=== PATIENT | male | born 1940 | race Caucasian/White ===

== ENCOUNTER 2021-10-15 10:14 | Outpatient (REF) | payer MEDICARE, SELFPAY | END 2021-10-15 10:15 | disposition home or self-care (01) | LOC: HO.BBR 10:14 | PROVIDERS: Visit Provider Internal Medicine | DX: Z13.89 Encounter for screening for other disorder (principal) | CPT/HCPCS: 85014; 85018; 99195 ==

== ENCOUNTER 2022-02-05 08:02 | Outpatient (REF) | payer MEDICARE, SELFPAY | END 2022-02-05 08:03 | disposition home or self-care (01) | LOC: HO.BBR 08:02 | PROVIDERS: Visit Provider Internal Medicine | DX: D75.1 Secondary polycythemia (principal) | CPT/HCPCS: 85014; 85018; 99195 ==

== ENCOUNTER 2022-03-10 08:06 | Outpatient (REF) | payer MEDICARE, SELFPAY | END 2022-03-10 08:07 | disposition home or self-care (01) | LOC: HO.BBR 08:06 | PROVIDERS: Visit Provider Internal Medicine | DX: D75.1 Secondary polycythemia (principal) | CPT/HCPCS: 85014; 85018; 99195 ==

== ENCOUNTER 2022-05-12 08:26 | Outpatient (REF) | payer MEDICARE, SELFPAY | END 2022-05-12 08:27 | disposition home or self-care (01) | LOC: HO.BBR 08:26 | PROVIDERS: PCP Pediatrics; Visit Provider Internal Medicine | DX: D75.1 Secondary polycythemia (principal) | CPT/HCPCS: 85018 ==

== ENCOUNTER 2022-05-14 11:58 | Outpatient (REF) | payer MEDICARE, SELFPAY | END 2022-05-14 11:59 | disposition home or self-care (01) | LOC: HO.BBR 11:58 | PROVIDERS: Visit Provider Internal Medicine | DX: D75.1 Secondary polycythemia (principal) | CPT/HCPCS: 85014; 85018; 99195 ==

== ENCOUNTER 2025-01-01 11:03 | Outpatient (REF) | payer MEDICARE, SELFPAY ==
--- OUTSIDE RECORDS SUMMARY | 2025-01-01 11:59 | XMS_ITS | Clinical Summary ---
Author Organization [facility] Address [address] [place] [address] Care Team Providers Care Equity Analyst Name Role Phone Alexander Joshi MD Primary Care Provider Allergies Active Allergy Reactions Criticality Noted Date Comments Iodinated Contrast Media 09/17/2019 Ibuprofen 09/17/2019 Medications Medication Sig Dispensed Refills Start Date End Date Status losartan (COZAAR) tablet 50 mg Take 1 tablet (50 mg total) by mouth daily. 0 Active aspirin 81 MG EC tablet Take 1 tablet (81 mg total) by mouth daily. 0 Active Multiple Vitamin (MULTIVITAMIN PO) Take by mouth. 0 Act aurora vitamin D3 (VITAMIN D3) 10 MCG (400 UNIT) tablet Take 1 tablet (400 Units total) by mouth daily. 0 Active hydroxyurea (HYDREA) 500 MG capsule TAKE 1 CAPSULE(500 MG) BY MOUTH DAILY 120 capsule 3 12/01/2022 Active Active Problems No known active problems Social History Tobacco Use Types Packs/Day Years Used Date Smoking Tobacco: Former Smokeless Tobacco: Never Alcohol Use Standard Drinks/Week Comments Yes 0 (1 standard drink = 0.6 oz pur e alcohol) Sex and Gender Information Value Date Recorded Sex Assigned at Not on file Gender Identity Not on file Sexual Orientation Not on file Job Start Date Occupation Industry Not on file Not on file Not on file Last Filed Vital Signs Vital Sign Reading Time Taken Comments Blood Pressure 167/53 02/03/2023 9:26 AM EDT Pulse 72 02/03/2023 9:26 AM EDT Temperature 37.1 C (98.7 F) 02/03/2023 9:26 AM EDT Respiratory Rate - - Oxygen Saturation 99% 02/03/2023 9:26 AM EDT Inhaled Oxygen Concentration - - Weight 59.9 kg (132 lb) 02/03/2023 9:26 AM EDT Height 167.6 cm (5' 6 ) 02/03/2023 9:26 AM EDT Body Mass Index 21.31 02/03/2023 9:26 AM EDT Plan of Treatment Health Maintenance Due Date Last Done Comments Depression Screening 1952 Preventative Health Evaluation 1957 Shingrix-Zoster Vaccine (1 o f 2) 1989 Fall Risk Assessment 02/07/2004 RSV Adult > 60+ Yrs or (1 - 1-dose 75+ series) 2014 DTap / Tdap / Td (2 - Td or Tdap) 07/27/2023 07/26/2013 COVID-19 Vaccine (2 - 2023-2 5 season) 2024 07/17/2020 Influenza Vaccine (#1) 2025 , 01/27/2021 Pneumococcal Vaccine Completed 01/16/2020, 07/19/2013 Hepatitis B Vaccines Aged Out No long er eligible based on patient's age to complete this topic RSV Ped < 20 months Aged Out No longe r eligible based on patient's age to complete this topic Care Teams Equity Analyst Relationship Specialty Start Date End Date Alexander Joshi MD PCP - General Heavy Equipment Mechanic 09/14/19
--- OUTSIDE RECORDS SUMMARY | 2025-01-01 11:59 | XMS_ITS | Clinical Summary ---
Author Organization [facility] Address [address] [place] [address] Phone Care Team Providers Care Kettle Girl Name Role Phone Tammy Joshi MD Primary Care Provider [phone] Allergies Active Allergy Reactions Criticality Noted Date Comments Ibuprofen 06/10/2005 Tachycardia Iodinated Contrast Media 06/10/2005 Other Reaction(s): Rash/Dermatitis Medications MULTIVITAMIN ORAL QD Active CHOLECALCIFEROL , VITAMIN D3, ORAL Take by mouth daily. Active aspirin 81 mg EC tablet 1 TABLET DAILY 8 Active losartan (COZAAR) 100 mg tabletIndicatio ns:Hypertension , unspecified type Take 1 tablet (100 mg total) by mouth 1 (one) time each day. 90 tablet 5 Active tamsulosin (FLOMAX) 0.4 mg 24 hr capsuleIndicati ons:Benign prostatic hyperplasia with lower urinary tract symptoms, symptom details unspecified Take 1 capsule (0.4 mg total) by mouth 1 (one) time each day. Capsules should be taken 30 minutes following the same meal each day. 30 each 2 5 03/10/20 25 Active tamsulosin (FLOMAX) 0.4 mg 24 hr capsule Take 1 capsule (0.4 mg total) by mouth 1 (one) time each day. Capsules should be taken 30 minutes following the same meal each day. 30 each 2 5 12/11/19 25 Discontinu ed(Reorder ) Active Problems Problem Noted Date Diagnosed Date Acute diverticulitis 06/12/2024 Abdominal pain 04/13/2024 BPH (benign prostatic hyperplasia) 07/12/2023 Overview (04/13/2024): On tamsulosin Hypertension 10/30/[address] scan, lung 06/29/2017 Overview (04/13/2024): Chest x-ray 06/26. CT 07/24 right midlung density. Repeat 3-6 months. Deviation of trachea to right. 05/27 Density resolved. 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 MRI recommended Diverticulosis 11/26/2010 Overview (04/13/2024): Diverticulitis 11/2010 Ear discharge 09/05/2009 Overview (04/13/2024): Left--Dr. Mcmahan Hypercholesteremia 06/05/2008 Overview (04/13/2024): 05/17--rec med, pt declined Chronic obstructive airway d isease ([facility] V24, [facility] V28) 01/14/2007 Overview (04/13/2024): by CT 12/13 Calculus of kidney 05/23/2006 Overview (04/13/2024): Bilateral on cat scan Encounters Date Type Department Care Team Description 12/24/2024 11:30 AM EDT Office Visit [facility] Hematology Oncology [address] [place] [address] Jasmin Green MD Polycythemia 12/10/2024 10:00 AM EDT Office Visit [facility] [place] [place] [address] [place] [phone] Petty Krishnan PA Primary hypertension (Primary Dx); Polycythemia; Benign prostatic hyperplasia with lower urinary tract symptoms, symptom details unspecified; Lower abdominal pain; 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, without long-term current use of insulin ([facility] V24, [facility] V28) 12/10/2024 Telephone Adult [facility] [address] [place] [address] Melinda Stover RN 11/20/2024 10:40 AM EDT Office Visit Gastroenterology [facility] [address] [facility] [address] [facility] [address] [place] [address] Katherine Barnes NP Left lower quadrant abdominal pain (Primary Dx); History of diverticulitis of colon 10/29/2024 11:30 AM EDT Office Visit [address] [phone] Ed Sherman PA Polycythemia (Primary Dx); Primary hypertension; Benign prostatic hyperplasia with lower urinary tract symptoms, symptom details unspecified; 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, without long-term current use of insulin ([facility] V24, [facility] V28); Weight loss; Other fatigue 10/26/2024 Telephone Adult [address] [phone] Tammy Joshi MD from Last 3 Months Immunizations Name Administration Dates Next Due Influenza trivalent, 0.5mL ( Fluad) 65yo and older 01/10/2024,02/10/2023,01/27/2021 Moderna SARS-CoV-2 COVID-19, mRNA, LNP-S, preservative free 06/19/2020 Pneumococcal conjugate 13 va lent (Prevnar 13, PCV13) 2mo and older 01/16/2020 Pneumococcal polysaccharide 23 valent (Pneumovax 23) 2yo and older 07/19/2013 Td Tetanus diptheria (Tdvax) 7yo and older 03/05 Tdap Tetanus diptheria acell ular pertussis (Boostrix; Adacel) 7yo and older 07/26/2013 Zoster Live 08/07/2012 Surgical History Surgery Date Site/Laterality Comments OTHER SURGICAL HISTORY PROCEDURE: HISTORY OTHER; COMMENT: repair fractured rib on the right with thoracotomy HERNIA REPAIR 05/11 PROCEDURE: HISTORICAL HERNIA REPAIR/ING; COMMENT: right - Dr. Perez FOOT SURGERY PROCEDURE: HISTORICAL FOOT SURGERY; COMMENT: x 7, due to injury COLONOSCOPY 12/05/14 PROCEDURE: HISTORICAL COLONOSCOPY; COMMENT: Pancolonic Diverticulosis, no polyps Medical History Medical History Date Comments Chronic airway obstruction, not elsewhere classified 01/14/2007 DX:Chronic airway obstructio n, not elsewhere classified Renal cyst 11/27/2010 DX:Renal cyst; C OMMENT: On cat scan Historical Medical DX 08/17/2013 DX:Polycyt hemia Ear discharge 09/05/2009 DX:Ear discharge ; COMMENT: Left--Dr. Mcmahan [phone] Diverticulosis 11/26/2010 DX:Diverticulosi s; COMMENT: Diverticulitis 11/2010 Carotid bruit 07/19/2013 DX:Carotid bruit Calculus of kidney 05/23/2006 DX:Calculus o f kidney; COMMENT: Bilateral on cat scan Hyperlipidemia 06/05/2008 DX:Hyperlipidemi a; COMMENT: 05/17--rec med, pt declined Abdominal pain DX:Abdominal agus n Hypertension 10/30/2019 Family History Medical History Relation Name Comments No Known Problems Aunt Diabetes Brother 1 Alcohol abuse Brother 2 Diabetes Brother 2 Prostate cancer Brother 3 No Known Problems Daughter 1 No Known Problems Daughter 2 Cataracts Father No Known Problems Maternal Grandfather No Known Problems Maternal Grandmother No Known Problems Mother No Known Problems Other 1 Hypertension Other 2 No Known Problems Other 3 No Known Problems Paternal Grandfather No Known Problems Paternal Grandmother Coronary artery disease Sister Diabetes Sister No Known Problems Son No Known Problems Uncle Blindness Neg Hx Glaucoma Neg Hx Macular degeneration Neg Hx Strabismus Neg Hx Relation Name Status Comments Aunt Brother 1 Brother 2 Brother 3 Daughter 1 Alive Daughter 2 Alive Father Maternal Grandfather Maternal Grandmother Mother Other 1 Other 2 Other 3 Paternal Grandfather Paternal Grandmother Sister Alive Son Alive Uncle Social History Tobacco Use Types Packs/Day Years Used Date Smoking Tobacco: Former Cigarettes Q uit: 05/09/1988 Smokeless Tobacco: Former Quit: 05/09/1979 Tobacco Cessation:Counseling Given: Not Answered Alcohol Use Standard Drinks/Week Comments Yes 0 (1 standard drink = 0.6 oz pur e alcohol) rarely Housing Instability Answer Date Recorde d Are you worried that in the next 2 months you may not have stable housing? No 09/26/2024 Food Access & Nutrition Answer Date Rec orded Do you have access to a vari ety of food including fruits and vegetables? Yes 09/26/2024 Access to Healthcare Answer Date Record ed Within the last 3 months, ho w many times did you visit the emergency department for your medical care? 1 09/26/2024 Health Literacy Answer Date Recorded How often do you need to hav e someone help you when you read instructions, pamphlets, or other written material from your doctor or pharmacy? Never 09/26/2024 Caregiver: How often do you need to have someone help you when you read instructions, pamphlets, or other written material from your doctor or pharmacy? Not on file 09/26/2024 Financial Risk Answer Date Recorded How hard is it for you to pa y for the very basics like food, housing, medical care, and air conditioning / heating? Not very hard 09/26/2024 Transportation Answer Date Recorded Has the lack of transportati on kept you from meetings, work, or from getting things needed for daily living? No Has the lack of transportati on kept you from medical appointments or from getting medications? No 09/26/2024 Social Isolation Answer Date Recorded How often do you feel lonely or isolated from th ose around you? Rarely 09/26/2024 Food Risk Answer Date Recorded Within the past 12 months we worried whether our food would run out before we got money to buy more. Never true 09/26/2024 Within the past 12 months th e food we bought just didn't last and we didn't have money to get more. Never true 09/26/2024 Dependent Care Answer Date Recorded Do you need help finding or paying for care for your loved ones. For example, childhood teacher or elderly care for an older adult? No 09/26/2024 Education Answer Date Recorded Do you think completing more education or training, like finishing a GED, going to college, or learning a trade, would be helpful for you? N/A 09/26/2024 Employment and Income Answer Date Recor ded During the last four weeks, have you been actively looking for work? No 09/26/2024 Living Situation Answer Date Recorded What is your living situation? 0 09/26/2024 Interpersonal Safety Answer Date Record ed Physical Abuse 06/12/2024 Verbal Abuse 06/12/2024 Sex and Gender Information Value Date Recorded Sex Assigned at Male 06/12/2024 1:45 PM EST Legal Sex Male 2:59 AM EST Gender Identity Male 06/12/2024 1:45 PM EST Sexual Orientation Choose not to disclose 2024 1:45 PM EST Obstetrics History Last Filed Vital Signs Vital Sign Reading Time Taken Comments Blood Pressure 172/78 12/24/2024 11:21 AM EDT Pulse 78 12/24/2024 11:21 AM EDT Temperature 36.4 C (97.6 F) 12/24/2024 11:21 AM EDT Respiratory Rate 15 06/13/2024 8:10 AM EST Oxygen Saturation 98% 12/24/2024 11:21 AM EDT Inhaled Oxygen Concentration - - Weight 54 kg (119 lb) 12/24/2024 11:21 AM EDT Height 172.7 cm (5' 8 ) 12/24/2024 11:21 AM EDT Body Mass Index 18.09 12/24/2024 11:21 AM EDT Plan of Treatment Upcoming Encounters Date Type Department Care Team (Late st Contact Info) Description 04/22/2025 11:15 AM EST Office Visit [facility] Hematology Oncology [address] [place] [phone] Jasmin Green MD [address] [place] [address] Health Maintenance Due Date Last Done Comments Diabetes: Annual Retina Eye Exam 1950 RSV Immunization Adult Patients (1 - 1-dose 75+ series) 2014 DTaP,Tdap,and Td Vaccines (3 - Td or Tdap) 07/27/2023 07/26/2013, 03/05/2004 COVID-19 Vaccine ( - season) 2024 03/31/2021, 07/17/2020, 06/19/2020 Zoster Vaccines (3 of 3) 01/02/2025 11/07/2024, 04/0 05/2012 Influenza Vaccine (#1) 2025 , 02/10/2023, 01/27/2022, Additional history exists Diabetes: Annual Foot Exam 01/09/2025 01/10/2024 Diabetes: Blood Sugar Control Test (HGBA1C) 06/12/2025 12/10/2024, 01/10/2024, 01/10/2024 Falls Risk Assessment 06/13/2025 06/13/2024 Medicare Annual Wellness Visit 09/26/2025 09/26/2024 Social Influencers of Health Screening 09/26/2025 09/26/2024 Diabetes: Annual Urine Albumin-Creatinine Ratio (uACR) 12/10/2025 12/10/2024, 01/10/2024 Diabetes: Annual GFR (Glomerular Filtration Rate) 12/10/2025 12/10/2024, 06/13/2024, 06/12/2024, Additional history exists Hypertension/CHF/CAD Annual BMP Blood Test 12/10/2025 12/10/2024, 06/13/2024, 06/12/2024, Additional history exists Cholesterol Screening (Lipid Panel) 12/10/2029 12/10/2024, 01/10/2024, 01/10/2024 Pneumococcal Vaccine: 50+ Years Completed 08/24/2022, 01/16/2020, 02/10/2016, Additional history exists Depression Screening Completed 09/26/2024, 07/12/19 24 HIB Vaccines Aged Out No longer eligi ble based on patient's age to complete this topic HPV Vaccines Aged Out No longer eligi ble based on patient's age to complete this topic Hepatitis A Vaccines Aged Out No long er eligible based on patient's age to complete this topic Hepatitis B Vaccines Aged Out No long er eligible based on patient's age to complete this topic IPV Vaccines Aged Out No longer eligi ble based on patient's age to complete this topic MMR Vaccines Aged Out No longer eligi ble based on patient's age to complete this topic Meningococcal ACWY Vaccine Aged Out N o longer eligible based on patient's age to complete this topic Meningococcal B Vaccine Aged Out No l onger eligible based on patient's age to complete this topic RSV Immunization Patients Under 20 months Aged Out No longer eligible based on patient's age to complete this topic Varicella Vaccines Aged Out No longer eligible based on patient's age to complete this topic Procedures Procedure Name Priority Date/Time Associated Diagnosis Comments CBC WITH AUTO DIFFERENTIAL Routine 12/10/2024 10:34 AM EDT Polycythemia PSA TOTAL, FREE AND COMPLEXED, DIAGNOSTIC Routine 12/10/2024 10:34 AM EDT Benign prostatic hyperplasia with lower urinary tract symptoms, symptom details unspecified Weight loss Other fatigue CBC AND DIFFERENTIAL Routine 12/10/2024 10:34 AM EDT Polycythemia MICROALBUMIN CREATININE URINE RATIO Routine 12/10/2024 10:34 AM EDT 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, without long-term current use of insulin ([facility] V24, [facility] V28) LIPID PANEL WITH REFLEX TO DIRECT LDL Routine 12/10/2024 10:34 AM EDT 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, without long-term current use of insulin ([facility] V24, [facility] V28) HEMOGLOBIN A1C Routine 12/10/2024 10:34 AM EDT 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, without long-term current use of insulin ([facility] V24, [facility] V28) COMPREHENSIVE METABOLIC PANEL Routine 12/10/2024 10:34 AM EDT Abdominal pain, unspecified abdominal location C-REACTIVE PROTEIN Routine 12/10/2024 10 :34 AM EDT Abdominal pain, unspecified abdominal location DIABETES FOOT EXAM Routine 01/10/2024 DEPRESSION SCREENING Routine 07/12/2023 from Last 3 Months or Most Recently Relevant to Health Maintenance Results * (ABNORMAL) PSA total, free and complexed (12/10/2024 10:34 AM EDT) PSA 0.90 0.00 - 4.00 ng/mL LAB CHEMISTRY METHOD 12/10/2024 2:10 PM EDT [facility] PSA, Complexed 0.67 0.00 - 3.00 ng/mL LAB CHEMISTRY METHOD 12/10/2024 2:10 PM EDT [facility] PSA, Free 0.2 ng/mL LAB CHEMISTRY METHOD 12/10/2024 2:10 PM EDT [facility] PSA, Free Pct 22.2(L) >25.0 % LAB CHEMISTRY METHOD 12/10/2024 2:10 PM EDT [facility] Blood Venous blood specimen / Unknown Venipuncture / Unknown 12/10/2024 10:34 AM EDT 12/10/2024 10:34 AM EDT Narrative [facility] - 12/10/2024 2:10 PM EDT Free PSA is a calculated value. The diagnostic usefulness of % free PSA has not been established in patients with Total PSA below 2.6 or above 10 ng/mL. This test was performed using the Centaur Chemiluminescent method. PSA values obtained with other methods cannot be used interchangeably. us Ed ROSS LAB BLOOD ORDERABLES Final Res ult [facility] [address] [place] [address], * Lipid panel with reflex to direct LDL (12/10/2024 10:34 AM EDT) Cholesterol 154 0 - 200 mg/dL LAB CHEMISTRY METHOD 12/10/2024 1:38 PM EDT [facility] Triglycerides 149 0 - 150 mg/dL LAB CHEMISTRY METHOD 12/10/2024 1:38 PM EDT [facility] HDL 44 >=40 mg/dL LAB CHEMISTRY METHOD 12/10/2024 1:38 PM EDT [facility] LDL Calculated 80 0 - 100 mg/dL LAB CHEMISTRY METHOD 12/10/2024 1:38 PM EDT [facility] VLDL Cholesterol Ander 29.8 mg/dL LAB CHEMISTRY METHOD 12/10/2024 1:38 PM EDT [facility] Non HDL Chol. (LDL+VLDL) 110 <145 mg/dL LAB CHEMISTRY METHOD 12/10/2024 1:38 PM EDT [facility] Chol/HDL Ratio 3.5 0.0 - 4.4 LAB CHEMISTRY METHOD 12/10/2024 1:38 PM EDT [facility] Blood Venous blood specimen / Unknown Venipuncture / Unknown 12/10/2024 10:34 AM EDT 12/10/2024 10:34 AM EDT Ed ROSS LAB BLOOD ORDERABLES Final Res ult [facility] [address] [place] [address], * (ABNORMAL) CBC auto differential (12/10/2024 10:34 AM EDT) WBC 7.5 4.8 - 10.8 K/[facility] LAB HEMETOLOGY METHOD 12/10/2024 1:28 PM EDT [facility] RBC 8.60(H) 4.50 - 5.50 M/[facility] LAB HEMETOLOGY METHOD 12/10/2024 1:28 PM EDT [facility] Hemoglobin 17.4 13.5 - 17.5 g/dL LAB HEMETOLOGY METHOD 12/10/2024 1:28 PM EDT [facility] Hematocrit 65.5(HH) 42.0 - 54.0 % LAB HEMETOLOGY METHOD 12/10/2024 1:28 PM EDT [facility] MCV 76.5(L) 79.0 - 98.0 FL LAB HEMETOLOGY METHOD 12/10/2024 1:28 PM [facility] MCH 20.3(L) 27.0 - 32.0 pcg LAB HEMETOLOGY METHOD 12/10/2024 1:28 PM [facility] MCHC 26.6(L) 32.0 - 37.0 g/dL LAB HEMETOLOGY METHOD 12/10/2024 1:28 PM [facility] RDW 26.5(H) 11.0 - 15.0 % LAB HEMETOLOGY METHOD 12/10/2024 1:28 PM [facility] Platelets 173 130 - 400 K/mcL LAB HEMETOLOGY METHOD 12/10/2024 1:28 PM [facility] MPV LAB HEMETOLOGY METHOD 12/10/2024 1:28 PM [facility] Comment:Not Measured NRBC 0.0 <1.0 % LAB HEMETOLOGY METHOD 12/10/2024 1:28 PM [facility] NRBC Absolute 0.00 <0.10 K/mcL LAB HEMETOLOGY METHOD 12/10/2024 1:28 PM [facility] Neutrophils Relative 59.4 % LAB HEMETOLOGY METHOD 12/10/2024 1:28 PM [facility] Lymphocytes Relative 17.6 % LAB HEMETOLOGY METHOD 12/10/2024 1:28 PM [facility] Monocytes Relative 7.6 % LAB HEMETOLOGY METHOD 12/10/2024 1:28 PM [facility] Eosinophils Relative 14.0 % LAB HEMETOLOGY METHOD 12/10/2024 1:28 PM [facility] Basophils Relative 0.7 % LAB HEMETOLOGY METHOD 12/10/2024 1:28 PM EDT [facility] Immature Granulocytes Relative 0.7 % LAB HEMETOLOGY METHOD 12/10/2024 1:28 PM EDT [facility] Neutrophils Absolute 4.48 1.50 - 7.00 K/[facility] LAB HEMETOLOGY METHOD 12/10/2024 1:28 PM EDT [facility] Lymphocytes Absolute 1.32 1.00 - 5.00 K/[facility] LAB HEMETOLOGY METHOD 12/10/2024 1:28 PM EDT [facility] Monocytes Absolute 0.57 0.20 - 1.00 K/[facility] LAB HEMETOLOGY METHOD 12/10/2024 1:28 PM EDT [facility] Eosinophils Absolute 1.05(H) 0.00 - 0.50 K/[facility] LAB H[facility]OLOGY [facility] Basophils Absolute 0.05 0.00 - 0.20 K/[facility] LAB HEMETOLOGY METHOD 12/10/2024 1:28 PM EDT [facility] Immature Granulocytes Absolute 0.05(H) 0.00 - 0.03 K/[facility] LAB HEMETOLOGY METHOD 12/10/2024 1:28 PM [facility] Blood Venous blood specimen / Unknown Venipuncture / Unknown 12/10/2024 10:34 AM EDT 12/10/2024 10:34 AM EDT us Ed ROSS LAB BLOOD ORDERABLES Final Res ult [facility] [address] [place] [address], * (ABNORMAL) Microalbumin creatinine urine ratio (12/10/2024 10:34 AM EDT) Creatinine, Urine 141.0 mg/dL LAB CHEMISTRY METHOD 12/10/2024 3:14 PM EDT [facility] Microalb, Ur 376.0(H) 0.0 - 29.0 mg/L LAB CHEMISTRY METHOD 12/10/2024 3:14 PM EDT [facility] Microalb/Crea t Ratio 267(H) <30 mg/g creat LAB CHEMISTRY METHOD 12/10/2024 3:14 PM EDT [facility] Urine Urine specimen obtained by clean catch procedure / Unknown Non-blood Collection / Unknown 12/10/2024 10:34 AM EDT 12/10/2024 10:34 AM EDT Ed ROSS LAB URINE ORDERABLES Final Res ult Performing Organization Address [facility]/ZIP Co de Phone Number [facility] [address] [place] [address], [place] [phone] * C-reactive protein (12/10/2024 10:34 AM EDT) C-Reactive Protein <0.29 <=0.50 mg/dL LAB CHEMISTRY METHOD 12/10/2024 1:38 PM EDT [facility] Blood Venous blood specimen / Unknown Venipuncture / Unknown 12/10/2024 10:34 AM EDT 12/10/2024 10:34 AM EDT Petty ROSS LAB BLOOD ORDERABLES Final Resul t [facility] [address] [place] [address], [place] [phone] * (ABNORMAL) Hemoglobin A1c (12/10/2024 10:34 AM EDT) Hemoglobin A1C 7.3(H) <6.5 % LAB CHEMISTRY METHOD 12/10/2024 2:15 PM EDT [facility] Mean Bld Glu Estim. 163 mg/dL LAB CHEMISTRY METHOD 12/10/2024 2:15 PM [facility] Blood Venous blood specimen / Unknown Venipuncture / Unknown 12/10/2024 10:34 AM EDT 12/10/2024 10:34 AM EDT Ed ROSS LAB BLOOD ORDERABLES Final Res ult [facility] [address] [place] [address], * (ABNORMAL) Comprehensive metabolic panel (12/10/2024 10:34 AM EDT) Sodium 139 133 - 145 mmol/L LAB CHEMISTRY METHOD 12/10/2024 1:38 PM [facility] Potassium 4.1 3.5 - 5.5 mmol/L LAB CHEMISTRY METHOD 12/10/2024 1:38 PM [facility] Comment:Hemolysis present Chloride 105 96 - 110 mmol/L LAB CHEMISTRY METHOD 12/10/2024 1:38 PM [facility] CO2 23 21 - 32 mmol/L LAB CHEMISTRY METHOD 12/10/2024 1:38 PM [facility] Anion Gap 11 3 - 11 LAB CHEMISTRY METHOD 12/10/2024 1:38 PM [facility] Glucose 303(H) 70 - 100 mg/dL LAB CHEMISTRY METHOD 12/10/2024 1:38 PM [facility] BUN 17 5 - 25 mg/dL LAB CHEMISTRY METHOD 12/10/2024 1:38 PM [facility] Creatinine 1.00 0.70 - 1.30 mg/dL LAB CHEMISTRY METHOD 12/10/2024 1:38 PM [facility] eGFR 74 >=60 mL/min/1. 73m2 LAB CHEMISTRY METHOD 12/10/2024 1:38 PM [facility] Comment:Calculation based on the Chronic Kidney Disease Epidemiology Collaboration (CKD-EPI) equation refit without adjustment for race. BUN/Creatinine Ratio 17.0 LAB CHEMISTRY METHOD 12/10/2024 1:38 PM T [facility] Calcium 9.4 8.5 - 10.5 mg/dL LAB CHEMISTRY METHOD 12/10/2024 1:38 PM [facility] AST (SGOT) 24 10 - 42 unit/L LAB CHEMISTRY METHOD 12/10/2024 1:38 PM T [facility] Comment:Hemolysis present ALT (SGPT) 36 10 - 60 unit/L LAB CHEMISTRY METHOD 12/10/2024 1:38 PM [facility] Alkaline Phosphatase 88 42 - 121 unit/L LAB CHEMISTRY METHOD 12/10/2024 1:38 PM [facility] Total Protein 6.9 6.0 - 8.0 g/dL LAB CHEMISTRY METHOD 12/10/2024 1:38 PM [facility] Albumin 3.6 3.2 - 5.0 g/dL LAB CHEMISTRY METHOD 12/10/2024 1:38 PM [facility] Total Bilirubin 1.1 0.0 - 1.4 mg/dL LAB CHEMISTRY METHOD 12/10/2024 1:38 PM [facility] Blood Venous blood specimen / Unknown Venipuncture / Unknown 12/10/2024 10:34 AM EDT 12/10/2024 10:34 AM EDT us Petty ROSS LAB BLOOD ORDERABLES Final Resul t [facility] [address] [place] [address], [place] [phone] * Diabetes Foot Exam (01/10/2024) Diabetes: Annual Foot Exam abstracted us Historical Provider HEALTH MAINTENANCE Final Result * Depression Screening (07/12/2023) Depression Screening abstracted us Historical Provider HEALTH MAINTENANCE Final Result from Last 3 Months or Most Recently Relevant to Health Maintenance Insurance [employer] MEDICARE Advance Directives * No CPR/Do Not Intubate (Latest Code Status on File) Date Activated Date Inactivated Comments 06/12/2024 6:11 PM 06/13/2024 1:53 PM This code stat us was ascertained in the following way: Code status discussion: discussion with patient To update the patient's code status, place a code status order. Do not modify or discontinue any currently active code status orders. * Full Code - Default Date Activated Date Inactivated Comments 06/12/2024 6:05 PM 06/12/2024 6:11 PM This is order is used when code status has not been discussed with the patient, or code status is otherwise unknown/unconfirmed To update the patient's code status, place a code status order. Do not modify or discontinue any currently active code status orders. Care Teams Kettle Girl Relationship Specialty Start Date End Date Tammy Joshi MD [address] [place] [address] PCP - General 08/25/1998
== END 2025-01-01 11:04 | disposition home or self-care (01) ==
LOC: HO.BBR 11:03
PROVIDERS: PCP Pediatrics; Visit Provider Internal Medicine
DX: D45 Polycythemia vera (principal)
CPT/HCPCS: 85018; 99195

== ENCOUNTER 2025-01-16 11:12 | Outpatient (REF) | payer MEDICARE, SELFPAY ==
--- OUTSIDE RECORDS SUMMARY | 2025-01-11 13:45 | XMS_ITS | Encounter Summary ---
Author Organization [facility] Address [address] [place] [address] Care Team Providers Care Animal Damage Control Agent Name Role Phone Tammy Joshi MD Primary Care Provider [phone] Reason for Visit * Reason Comments follow up er Encounter Details Date Type Department Care Team ([facility] st Contact Info) Description 01/11/2025 1:45 PM EDT Office Visit Adult Medicine [facility] [address] [place] [phone] Jaylene Peacock NP [address] [place] [address] Hypertension, unspecified type (Primary Dx) Social History Tobacco Use Types Packs/Day Years Used Date Smoking Tobacco: Former Cigarettes Q uit: 05/09/1988 Smokeless Tobacco: Former Quit: 05/09/1979 Alcohol Use Standard Drinks/Week Comments Yes 0 [...] care for your loved ones. For example, child care director or elderly care for an older adult? [...] not to disclose 2024 1:45 PM EST documented as of this encounter Last Filed Vital Signs Vital Sign Reading Time Taken Comments Blood Pressure 148/63 01/11/2025 1:43 PM EDT Pulse 69 01/11/2025 1:43 PM EDT Temperature 36.6 C (97.9 F) 01/11/2025 1:43 PM EDT Respiratory Rate - - Oxygen Saturation - - Inhaled Oxygen Concentration - - Weight 53.5 kg (118 lb) 01/11/2025 1:43 PM EDT Height 167.6 cm (5' 6 ) 01/11/2025 1:43 PM EDT Body Mass Index 19.05 01/11/2025 1:43 PM EDT documented in this encounter Ordered Prescriptions Prescription Sig Dispense Quantity Refills Last Filled Start Date End Date amLODIPine (NORVASC) 2.5 mg tabletIndications: Hypertension, unspecified type Take 1 tablet (2.5 mg total) by mouth 1 (one) time each day. 30 each 5 01/11/2025 07/10/2025 documented in this encounter Progress Notes * Jaylene Peacock NP - 01/11/2025 1:45 PM EDT [facility] Address: [address] [place] [address] [address], [place] [address] * Jaylene Peacock NP - 01/11/2025 1:45 PM EDT CHIEF COMPLAINT: follow up er IDENTIFIER: Sreekanth Aguirre is a 84 y.o. old male. HPI: History of Present Illness The patient presents for a follow-up visit after an emergency room visit for blood pressure management. He has been monitoring his blood pressure at home, which occasionally reaches 200. He checks his blood pressure three times daily, with readings sometimes as high as 198 and as low as 179. Patient denies any vision change, chest pain, dizziness, headaches, blood in urine. He is currently on losartan 100 mg daily, which is the maximum dose. Despite this medication, his blood pressure remains high. During his ER visit on 01/08/2025, troponin levels, metabolic panel, andchest x-ray were all normal. An EKG was done which showed ST depressions in V4, V5, V6 without reciprocal changes. He was referred to cardiology He also mentions that he was unable to donate blood last week due to his elevated blood pressure. He has polycythemia and is under the care of a pipe organ installer, with an appointment scheduled for 01/29/2025. ROS: GENERAL: Negative for malaise, significant weight loss and fever HEENT: No changes in hearing or vision. No nosebleeds or other nasal problems NECK: Negative for lumps, goiter, pain, and significant neck swelling RESPIRATORY: No cough, wheezing or shortness of breath CARDIOVASCULAR: Negative for chest pain, leg swelling and palpitations GI: Negative for abdominal discomfort, changes in bowel habits, blood in stool or black stools : Negative for dysuria, frequency, and incontinence MUSCULOSKELETAL: Negative for joint pain or swelling, back pain and muscle pain. SKIN: No lesions, rash, or itching PSYCH: No sleep disturbances, depression or major stressors HEMATOLOGY/LYMPHOLOGY: No prolonged bleeding, easy bruising, or swollen lymph nodes ENDOCRINE: Negative for cold or heat intolerance, polyuria, polydipsia and goiter NEURO: No persistent headache, fainting, seizures, strokes, TIAs, weakness, numbness or tingling PAST MEDICAL HISTORY: Patient Active Problem List Diagnosis Date Noted Acute diverticulitis 06/12/2024 Abdominal pain 04/13/2024 BPH (benign prostatic hyperplasia) 07/12/2023 Hypertension 10/30/[address] scan, lung 06/29/2017 Elevated BP without diagnosis of hypertension 05/31/2017 Erectile dysfunction 03/08/2017 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 V24, [facility] V28) 11/04/2016 Polycythemia 08/17/2013 Carotid bruit 07/19/2013 Renal cyst 11/27/2010 Diverticulosis 11/26/2010 Ear discharge 09/05/2009 Hypercholesteremia 06/05/2008 Chronic obstructive airway disease ([facility] V24, [facility] V28) 01/14/2007 Calculus of kidney 05/23/2006 SOCIAL HISTORY: Social History Tobacco Use Smoking status: Former Current packs/day: 0.00 Types: Cigarettes Quit date: 05/09/1988 Years since quittin.7 Smokeless tobacco: Former Quit date: 05/09/1979 Substance Use Topics Alcohol use: Yes Comment: rarely FAMILY HISTORY: Family Status Relation Name Status Father Mother Daughter Alive Daughter Alive Son Alive Brother Brother Brother Sister Alive MGM (Not Specified) MGF (Not Specified) PGM (Not Specified) PGF (Not Specified) Aunt (Not Specified) Uncle (Not Specified) Other (Not Specified) Other (Not Specified) Other (Not Specified) Neg Hx (Not Specified) No partnership data on file Family History Problem Relation Name Age of Onset Cataracts Father No Known Problems Mother No Known Problems Daughter No Known Problems Daughter No Known Problems Son Diabetes Brother Diabetes Brother Alcohol abuse Brother Prostate cancer Brother Diabetes Sister Coronary artery disease Sister No Known Problems Maternal Grandmother No Known Problems Maternal Grandfather No Known Problems Paternal Grandmother No Known Problems Paternal Grandfather No Known Problems Aunt No Known Problems Uncle No Known Problems Other Hypertension Other No Known Problems Other Blindness Neg Hx Glaucoma Neg Hx Macular degeneration Neg Hx Strabismus Neg Hx ACTIVE MEDICATIONS: Outpatient Medications Marked as Taking for the 01/11/25 encounter (Office Visit) with Jaylene Peacock NP Medication Sig Dispense Refill aspirin 81 mg EC tablet 1 TABLET DAILY CHOLECALCIFEROL, VITAMIN D3, ORAL Take by mouth daily. losartan (COZAAR) 100 mg tablet Take 1 tablet (100 mg total) by mouth 1 (one) time each day. 90 tablet 0 MULTIVITAMIN ORAL QD tamsulosin (FLOMAX) 0.4 mg 24 hr capsule Take 1 capsule (0.4 mg total) by mouth 1 (one) time each day. Capsules should be taken 30 minutes following the same meal each day. 30 each 2 ALLERGIES: Ibuprofen and Iodinated contrast media PHYSICAL EXAM: Blood pressure (!) 148/63, pulse 69, temperature 36.6 ??C (97.9 ??F), temperature source Temporal, height 1.676 m (66 ), weight 53.5 kg (118 lb). Body mass index is 19.05 kg/m??. Physical Exam APPEARANCE: Alert and in no acute distress HEART: RRR with normal S1 and S2, no murmurs, no gallops, no JVD appreciated LUNG: clear to auscultation bilaterally EXTREMITIES: Extremities warm and well perfused without clubbing, cyanosis, or edema NEURO: Awake, alert and oriented x 3 LABS/IMAGING: Lab Results Component Value Date WBC 9.4 01/08/2025 HGB 17.4 01/08/2025 HCT 66.2 (HH) 01/08/2025 MCV 75.4 (L) 01/08/2025 Lab Results Component Value Date NA 139 01/09/2025 K 4.5 01/09/2025 CO2 29 01/09/2025 CL 106 01/09/2025 BUN 14 01/09/2025 ALKPHOS 85 01/09/2025 Lab Results Component Value Date CHOL 154 12/10/2024 LDL 134 (A) 01/10/2024 HDL 44 12/10/2024 TRIG 149 12/10/2024 ORDERS: No orders of the defined types were placed in this encounter. IMPRESSION: 1. Hypertension, unspecified type amLODIPine (NORVASC) 2.5 mg tablet PLAN: Assessment & Plan 1. Hypertension: - Blood pressure remains elevated despite being on the maximum dose of losartan 100 mg daily. Home readings have been as high as 200 mmHg. - Current blood pressure reading in the office is 148/63 mmHg. EKG, troponin, metabolic panel, and chest x-ray from the ER visit on 01/08/2025 were normal. - The risks of uncontrolled hypertension, including potential kidney damage and increased risk of stroke and heart attack, were discussed. Referral to cardiology has been made, and contact information provided. - Amlodipine 2.5 mg will be added to the regimen, to be taken nightly. Losartan should continue to be taken in the morning. He is advised to maintain a log of his blood pressure readings for comparison during the next visit. 2. Polycythemia: - He is scheduled to see a pipe organ installer, Dr. Montalvo, on 01/29/2025. Labs have been ordered prior to this appointment to check his blood count. - He is advised to complete these labs today if possible. Follow-up: A follow-up visit is scheduled in 4 weeks to monitor his blood pressure. Results Labs - Troponin levels: 01/08/2025, Negative - Metabolic panel: 01/08/2025, Normal Imaging - Chest x-ray: 01/08/2025, Normal Diagnostic Testing - EK01/08/2025, Normal No orders of the defined types were placed in this encounter. For this encounter, I personally performed, face to face and och-lyww-yb-face services that include: -Review and update of allergies, PMH, problem list and medications.changes was reconciled with the patient/family/parent/guardian. - Medical appropriate examination - Care planning through shared decision making with counseling for plan of care, risk/benefit of care plan and follow-up recommendations I have obtained verbal consent from Sreekanth Aguirre prior to the recording. I have advised Sreekanth Aguirre that he may refuse the recording and require the recording to be turned off at any time during this encounter. Jaylene Peacock NP on 01/11/2025 at 2:08 PM EDT documented in this encounter Plan of Treatment Upcoming Encounters Date Type Department Care Team (Late st Contact Info) Description 01/29/2025 10:00 AM EDT Office Visit [facility] Hematology Oncology [address] [place] [phone] Jasmin Green MD [address] [place] [address] 04/22/2025 11:15 AM EST Office Visit [facility] Hematology Oncology [address] [place] [phone] Jasmin Green MD [address] [place] [address] documented as of this encounter Visit Diagnoses Diagnosis Hypertension, unspecified type- Primary documented in this encounter Additional Health Concerns Assessment Noted Time PHQ-9 Depression Total Score: 0 09/27/19 25 11:17 AM EDT documented as of this encounter Care Teams Animal Damage Control Agent Relationship Specialty Start Date End Date Tammy Joshi MD [address] [place] [address] PCP - General 08/25/1998 documented as of this encounter
--- OUTSIDE RECORDS SUMMARY | 2025-01-16 14:23 | XMS_ITS | Encounter Summary ---
Author Organization [facility] Address [address] [place] [address] Care Team Providers Care Fork Lift Mechanic Name Role Phone Tammy Joshi MD Primary Care Provider [phone] Reason for Visit * Reason Onset Date Comments Medication Problem 01/03/2025 Encounter Details Date Type Department Care Team ([facility] Contact Info) Description 01/03/2025 Telephone Adult Medicine [facility] [address] [place] [phone] Tammy Joshi MD [address] [place] [address] Social History Tobacco Use Types Packs/Day Years [...] Record ed Within the last 3 months, soren wang many times did you visit the emergency [...] care for your loved ones. For example, director child abuse therapy or elderly care for an older adult? [...] PM EST documented as of this encounter Progress Notes * VANDANA Martins - 01/10/2025 10:06 AM EDT Patient has appt tomorrow with Jaylene, [facility]ON[facility]. Spoke with provider regarding background of current issue. * VANDANA Martins - 01/10/2025 8:42 AM EDT Patient recently seen in ER. Will schedule ER follow up * Val Del Rosario LPN - 01/03/2025 4:54 PM EDT Please review when you are in office Please review below messages, last seen by you PCP out of office, thank you states that it doesn't have to be changed but needs to be increased Also states that Flomax gives him a upset stomach What is the name of the medication patient is having a problem with?: losartan 100 mg What is the problem?: Dr Medeiros states that this med is not strong enough for this pt - pt still has high bp BP Readings from Last 2 Encounters: 12/24/24 (!) 172/78 12/10/24 (!) 160/85 * Lizzy Tan - 01/03/2025 2:16 PM EDT Medication Problem: What is the name of the medication patient is having a problem with?: losartan 100 mg What is the problem?: Dr Medeiros states that this med is not strong enough for this pt - pt still has high bp Who is calling about the problem? : The patient Is this a NEW medication?: no How long has the patient been taking this medication? Who prescribed this medication for the patient? Tammy Joshi MD Who is patients PCP?: Tammy Josih MD Payor: [facility] MEDICARE / Plan: [facility] MEDICARE COMPLETE / Product Type: *No Product type* / documented in this encounter Plan of Treatment Upcoming Encounters Date Type Department Care Team (Late st Contact Info) Description 01/29/2025 10:00 AM EDT Office Visit [facility] Hematology Oncology [address] [place] [phone] Jasmin Green MD [address] [place] [address] 04/22/2025 11:15 AM EST Office Visit [facility] Hematology Oncology [address] [place] [phone] Jasmin Green MD [address] [place] [address] documented as of this encounter Visit Diagnoses Not on filedocumented in this encounter Additional Health Concerns Assessment Noted Time PHQ-9 Depression Total Score: 0 09/27/19 25 11:17 AM EDT documented as of this encounter Care Teams Fork Lift Mechanic Relationship Specialty Start Date End Date Tammy Joshi MD [address] [place] [address] PCP - General 08/25/1998 documented as of this encounter
--- OUTSIDE RECORDS SUMMARY | 2025-01-16 14:23 | XMS_ITS | Encounter Summary ---
Author Organization [facility] Address [address] [place] [address] Care Team Providers Care Boiler Operator Helper Name Role Phone Tammy Joshi MD Primary Care Provider [phone] Reason for Visit * Reason Onset Date Comments Hypertension 01/01/2025 Encounter Details Date Type Department Care Team ([facility] Contact Info) Description 01/01/2025 Telephone Adult [facility] [address] [place] [phone] Tammy Joshi MD [address] [place] [address] Social History Tobacco Use Types Packs/Day Years [...] care for your loved ones. For example, children's minister or elderly care for an older adult? [...] as of this encounter Progress Notes * Hiren Mac RN - 01/01/2025 3:19 PM EDT Left message for pt to please return our call * Mahendra Callejas - 01/01/2025 3:16 PM EDT Patient call requires triage: Symptoms patient is presenting: Pt went to have some blood work drawn and couldn't because BP was elevated. 179/83. How long has patient had these symptoms?: For ALL patients calling to schedule any appointment (routine, sick visit, follow up, consult, etc.) in the outpatient setting please ask the following questions: Do you have fever of higher than 101, sore throat with difficulty swallowing or severe shortness ofbreath? If YES to any of these above symptoms, send a message to triage and do not book. Red dot. If no, an audio or video visit should be booked. Have you had close contact with someone with Coronavirus in the last 14 days? Have you traveled abroad? Have you traveled recently to another state outside of [place], [place], [place], [place], [place], [place], [place]? o If yes, did you quarantine for 14 days or have a negative covid test? If yes to any of the above, patient is not to be scheduled in office until after 14 day quarantine or negative covid test. If pain or injury related was it due to an accident at work or from a motor vehicle accident? If yes, date of accident/Injury: If yes, gather 3rd constitution party insurance information [employer] Party Information: PCP: Tammy Joshi MD Payor: [facility] MEDICARE / Plan: [facility] MEDICARE COMPLETE / Product Type: *No Product type* / documented in this encounter Plan of Treatment Upcoming Encounters Date Type Department Care Team (Late st Contact Info) Description 01/29/2025 10:00 AM EDT Office Visit [facility] Hematology Oncology [address] [place] [phone] Jasmin Green MD [address] [place] [address] 04/22/2025 11:15 AM EST Office Visit [facility] Hematology Oncology [address] [place] [phone] Jasmin Green MD [address] [place] [address] documented as of this encounter Visit Diagnoses Not on filedocumented in this encounter Additional Health Concerns Assessment Noted Time PHQ-9 Depression Total Score: 0 09/27/19 25 11:17 AM EDT documented as of this encounter Care Teams Boiler Operator Helper Relationship Specialty Start Date End Date Tammy Joshi MD [address] [place] [address] PCP - General 08/25/1998 documented as of this encounter
--- OUTSIDE RECORDS SUMMARY | 2025-01-16 14:23 | XMS_ITS | Clinical Summary ---
Author Organization [facility] Address [address] [place] [phone] Phone Care Team Providers Care Bioinformatics Associate Name Role Phone Tammy Joshi MD Primary Care Provider [phone] Allergies Active Allergy Reactions Criticality Noted Date Comments Ibuprofen 06/10/2005 Tachycardia Iodinated Contrast Media Rash 06/10/2005 Medications MULTIVITAMIN ORAL QD Active CHOLECALCIFEROL, VITAMIN D3, ORAL Take by mouth daily. Active aspirin 81 mg EC tablet 1 TABLET DAILY 8 Active losartan (COZAAR) 100 mg tabletIndication s:Hypertension, unspecified type Take 1 tablet (100 mg total) by mouth 1 (one) time each day. 90 tablet 5 Active tamsulosin (FLOMAX) 0.4 mg 24 hr capsuleIndicatio ns:Benign prostatic hyperplasia with lower urinary tract symptoms, symptom details unspecified Take 1 capsule (0.4 mg total) by mouth 1 (one) time each day. Capsules should be taken 30 minutes following the same meal each day. 30 each 2 5 03/10/20 25 Active amLODIPine (NORVASC) 2.5 mg tabletIndication s:Hypertension, unspecified type Take 1 tablet (2.5 mg total) by mouth 1 (one) time each day. 30 each 5 5 07/11/19 26 Active Active Problems Problem Noted Date Diagnosed Date [...] mellitus) type II controlled with renal manifestation ([facility] V24, [facility] V28) 11/04/2016 Polycythemia 08/17/2013 Carotid bruit 07/19/2013 Renal cyst 11/27/2010 Overview (04/13/2024): On cat scan Complex cyst on CT 07/24. MRI recommended Diverticulosis 11/26/2010 Overview (04/13/2024): Diverticulitis 11/2010 Ear discharge 09/05/2009 Overview (04/13/2024): Left--Dr. Mcmahan Hypercholesteremia 06/05/2008 Overview (04/13/2024): 05/17--rec med, pt declined Chronic obstructive airway d isease ([facility] V24, [facility] V28) 01/14/2007 Overview (04/13/2024): by CT 12/13 Calculus of kidney 05/23/2006 Overview (04/13/2024): Bilateral on cat scan Encounters Date Type Department Care Team Description 01/14/2025 Telephone [facility] Hematology Oncology [address] [place] [address] Jasmin Green MD 01/11/2025 1:45 PM EDT Office Visit Adult Medicine [facility] [address] [place] [phone] Jaylene Peacock NP Hypertension, unspecified type (Primary Dx) 01/09/2025 Telephone [facility] Hematology Oncology [address] [place] [address] Jasmin Green MD 01/08/2025 11:17 PM EDT - 01/09/2025 4:39 AM EDT Emergency [facility] Emergency [address] [place] [phone] Richard Chaparro MD Elevated blood pressure reading (Primary Dx); Abnormal EKG Discharge Disposition: Home or Self Care 01/03/2025 Telephone Adult Medicine - [address] [phone] Tammy Joshi MD 01/03/2025 Telephone Adult [facility] [address] [place] [address] Tammy Joshi MD 01/01/2025 Telephone Adult Medicine - [place] [address] [place] [address] Tammy Joshi MD 01/01/2025 Telephone [facility] Hematology Oncology [address] [place] [phone] Jasmin Green MD 12/24/2024 11:30 AM EDT Office Visit [facility] Hematology Oncology [address] [place] [address] Jasmin Green MD Polycythemia 12/10/2024 10:00 AM EDT Office Visit Adult Medicine - [address] [phone] Petty Krishnan PA Primary hypertension (Primary Dx); Polycythemia; Benign prostatic hyperplasia with lower urinary tract symptoms, symptom details unspecified; Lower abdominal pain; 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, without long-term current use of insulin ([facility] V24, [facility] V28) 12/10/2024 Telephone Adult Medicine [facility] [address] [place] [address] Mleinda Stover, HERIBERTO 11/20/2024 10:40 AM EDT Office Visit Gastroenterology - [place] [address] [facility] [address] [place] [address] Katherine Barnes NP Left lower quadrant abdominal pain (Primary Dx); History of diverticulitis of colon 10/29/2024 11:30 AM EDT Office Visit Adult Medicine [facility] [address] [place] [phone] Ed Sherman PA Polycythemia (Primary Dx); Primary hypertension; Benign prostatic hyperplasia with lower urinary tract symptoms, symptom details unspecified; 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 Mcmahan Diverticulosis 11/26/2010 DX:Diverticulosi s; COMMENT: Diverticulitis 11/2010 [...] for your loved ones. For example, child welfare director or elderly care for an older [...] F) 01/11/2025 1:43 PM EDT Respiratory Rate 18 01/09/2025 1:27 AM EDT Oxygen Saturation 95% 01/09/2025 4:15 AM EDT Inhaled Oxygen Concentration - - Weight 53.5 kg (118 lb) 01/11/2025 1:43 PM EDT Height 167.6 cm (5' 6 ) 01/11/2025 1:43 PM EDT Body Mass Index 19.05 01/11/2025 1:43 PM EDT Plan of Treatment Upcoming Encounters Date Type Department Care Team (Late st Contact Info) Description 01/29/2025 10:00 AM EDT Office Visit [facility] Hematology Oncology [address] [place] [phone] Jasmin Green MD [address] [place] [phone] 04/22/2025 11:15 AM EST Office Visit [facility] Hematology Oncology [address] [place] [phone] Jasmin Green MD [address] [place] [address] Health Maintenance Due Date Last Done Comments Diabetes: Annual Retina Eye Exam 1950 RSV Immunization Adult Patients (1 - 1-dose 75+ series) 2014 DTaP,Tdap,and Td Vaccines (3 - Td or Tdap) 07/27/2023 07/26/2013, 03/05/2004 Zoster Vaccines (3 of 3) 01/02/2025 11/07/2024, 04/0 05/2012 COVID-19 Vaccine (4 - season) 2025 03/31/2021, 07/17/2020, 06/19/2020 Influenza Vaccine (#1) 2025 , 02/10/2023, 01/27/2022, Additional history exists Diabetes: Annual Foot Exam 01/09/2025 01/10/2024 Diabetes: Blood Sugar Control Test (HGBA1C) 06/12/2025 12/10/2024, 01/10/2024, 01/10/2024 Falls Risk Assessment 06/13/2025 06/13/2024 Medicare Annual Wellness Visit 09/26/2025 09/26/2024 Social Influencers of Health Screening 09/26/2025 09/26/2024 Diabetes: Annual Urine Albumin-Creatinine Ratio (uACR) 01/11/2026 01/11/2025, 12/10/2024, 01/10/2024 Diabetes: Annual GFR (Glomerular Filtration Rate) 01/11/2026 01/11/2025, 01/09/2025, 12/10/2024, Additional history exists Hypertension/CHF/CAD Annual BMP Blood Test 01/11/2026 01/11/2025, 01/09/2025, 12/10/2024, Additional history exists Cholesterol Screening (Lipid Panel) 12/10/2029 12/10/2024, 01/10/2024, 01/10/2024 Pneumococcal Vaccine: 50+ Years Completed 08/24/2022, 01/16/2020, 02/10/2016, Additional history exists Depression Screening Completed 09/26/2024, 07/12/19 HIB Vaccines Aged Out No longer eligi [...] Procedure Name Priority Date/Time Associated Diagnosis Comments BASIC METABOLIC PANEL Routine 01/11/2025 2:08 PM EDT 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, without long-term current use of insulin ([facility] V24, [facility] V28) MICROALBUMIN CREATININE URINE RATIO Routine 01/11/2025 2:08 PM EDT 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, without long-term current use of insulin ([facility] V24, [facility] V28) ECG ANNOTATED 01/10/2025 ECG ANNOTATED 01/10/2025 MAGNESIUM STAT 01/09/2025 2:29 AM EDT LIPASE STAT 01/09/2025 2:29 AM EDT COMPREHENSIVE METABOLIC PANEL STAT 01/09/2025 2:29 AM EDT XR CHEST 1 VIEW STAT 01/09/2025 1:00 AM EDT D-DIMER STAT 01/09/2025 12:28 AM EDT CBC WITH AUTO DIFFERENTIAL STAT 01/08/2025 11:44 PM EDT B-TYPE NATRIURETIC PEPTIDE STAT 01/08/2025 11:44 PM EDT TROPONIN I HIGH SENSITIVITY STAT 01/08/2025 11:44 PM EDT CBC AND DIFFERENTIAL STAT 01/08/2025 11:44 PM EDT LACTATE, WITH REFLEX STAT 01/08/2025 11:44 PM EDT ECG 12-LEAD STAT 01/08/2025 11:42 PM EDT CBC WITH AUTO DIFFERENTIAL Routine 12/10/2024 10:34 [...] complication, without long-term current use of insulin ([facility] V24, [facility] V28) LIPID PANEL WITH REFLEX TO DIRECT LDL Routine 12/10/2024 10:34 AM EDT 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, without long-term current use of insulin ([facility] V24, [facility] V28) HEMOGLOBIN A1C Routine 12/10/2024 10:34 AM EDT 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, without long-term current use of insulin ([facility] V24, [facility] V28) COMPREHENSIVE METABOLIC PANEL Routine 12/10/2024 10:34 AM EDT Abdominal pain, unspecified abdominal location C-REACTIVE PROTEIN Routine 12/10/2024 10 :34 AM EDT Abdominal pain, unspecified abdominal location DIABETES FOOT EXAM Routine 01/10/2024 DEPRESSION SCREENING Routine 07/12/2023 from Last 3 Months or Most Recently Relevant to Health Maintenance Results * (ABNORMAL) Microalbumin creatinine urine ratio (01/11/2025 2:08 PM EDT) Only the most recent of2 resultswithin the time period is included. Creatinine, Urine 116.0 mg/dL LAB CHEMISTRY METHOD 01/11/2025 9:36 PM EDT [facility] Microalb, Ur 110.0(H) 0.0 - 29.0 mg/L LAB CHEMISTRY METHOD 01/11/2025 9:36 PM T [facility] Microalb/Crea t Ratio 95(H) <30 mg/g creat LAB CHEMISTRY METHOD 01/11/2025 9:36 PM [facility] Urine Urine specimen obtained by clean catch procedure / Unknown Non-blood Collection / Unknown 01/11/2025 2:08 PM EDT 01/11/2025 2:08 PM EDT us Petty ROSS LAB URINE ORDERABLES Final Resul t [facility] [address] [place] [address], [place] [phone] * (ABNORMAL) Basic metabolic panel (01/11/2025 2:08 PM EDT) Sodium 140 133 - 145 mmol/L LAB CHEMISTRY METHOD 01/11/2025 5:54 PM [facility] Potassium 4.3 3.5 - 5.5 mmol/L LAB CHEMISTRY METHOD 01/11/2025 5:54 PM [facility] Chloride 106 96 - 110 mmol/L LAB CHEMISTRY METHOD 01/11/2025 5:54 PM [facility] CO2 31 21 - 32 mmol/L LAB CHEMISTRY METHOD 01/11/2025 5:54 PM [facility] Anion Gap 3 3 - 11 LAB CHEMISTRY METHOD 01/11/2025 5:54 PM [facility] Glucose 108(H) 70 - 100 mg/dL LAB CHEMISTRY METHOD 01/11/2025 5:54 PM [facility] BUN 17 5 - 25 mg/dL LAB CHEMISTRY METHOD 01/11/2025 5:54 PM [facility] Creatinine 1.03 0.70 - 1.30 mg/dL LAB CHEMISTRY METHOD 01/11/2025 5:54 PM EDT [facility] eGFR 71 >=60 mL/min/1. 73m2 LAB CHEMISTRY METHOD 01/11/2025 5:54 PM EDT [facility] Comment:Calculation based on the Chronic Kidney Disease Epidemiology Collaboration (CKD-EPI) equation refit without adjustment for race. BUN/Creatinine Ratio 16.5 LAB CHEMISTRY METHOD 01/11/2025 5:54 PM EDT [facility] Calcium 9.4 8.5 - 10.5 mg/dL LAB CHEMISTRY METHOD 01/11/2025 5:54 PM EDT [facility] Blood Venous blood specimen / Unknown Venipuncture / Unknown 01/11/2025 2:08 PM EDT 01/11/2025 2:08 PM EDT Petty ROSS LAB BLOOD ORDERABLES Final Resul t Performing Organization Address [facility]/ZIP Co de Phone Number [facility] [address] [place] [address], [place] [phone] * ECG-Annotated (01/10/2025) Only the most recent of2 resultswithin the time period is included. Provider Onbase ECG ORDERABLES Final Result * Magnesium (01/09/2025 2:29 AM EDT) Magnesium 2.1 1.9 - 2.6 mg/dL LAB CHEMISTRY METHOD 01/09/2025 3:14 AM EDT [facility] Blood Venous blood specimen / Unknown Venipuncture / Unknown 01/09/2025 2:29 AM EDT 01/09/2025 2:38 AM EDT Alexa ROSS LAB BLOOD ORDERABLES Fin al Result Performing Organization Address City/[facility]/ZIP Co de Phone Number [facility] [address] [place] [address], [place] [phone] * Lipase (01/09/2025 2:29 AM EDT) Lipase 49 13 - 75 unit/L LAB CHEMISTRY METHOD 01/09/2025 3:14 AM [facility] Blood Venous blood specimen / Unknown Venipuncture / Unknown 01/09/2025 2:29 AM EDT 01/09/2025 2:38 AM EDT Alexa ROSS LAB BLOOD ORDERABLES Fin al Result [facility] [address] [place] [address], * (ABNORMAL) Comprehensive Metabolic Panel (CMP) (01/09/2025 2:29 AM EDT) Only the most recent of2 resultswithin the time period is included. Pathologist [facility] Sodium 139 133 - 145 mmol/L LAB CHEMISTRY METHOD 01/09/2025 3:22 AM [facility] Potassium 4.5 3.5 - 5.5 mmol/L LAB CHEMISTRY METHOD 01/09/2025 3:22 AM [facility] Chloride 106 96 - 110 mmol/L LAB CHEMISTRY METHOD 01/09/2025 3:22 AM [facility] CO2 29 21 - 32 mmol/L LAB CHEMISTRY METHOD 01/09/2025 3:22 AM [facility] Anion Gap 4 3 - 11 LAB CHEMISTRY METHOD 01/09/2025 3:22 AM [facility] Glucose 112(H) 70 - 100 mg/dL LAB CHEMISTRY METHOD 01/09/2025 3:22 AM [facility] BUN 14 5 - 25 mg/dL LAB CHEMISTRY METHOD 01/09/2025 3:22 AM [facility] Creatinine 0.82 0.70 - 1.30 mg/dL LAB CHEMISTRY METHOD 01/09/2025 3:22 AM [facility] eGFR 86 >=60 mL/min/1. 73m2 LAB CHEMISTRY METHOD 01/09/2025 3:22 AM [facility] Comment:Calculation based on the Chronic Kidney Disease Epidemiology Collaboration (CKD-EPI) equation refit without adjustment for race. BUN/Creatinine Ratio 17.1 LAB CHEMISTRY METHOD 01/09/2025 3:22 AM [facility] Calcium 9.2 8.5 - 10.5 mg/dL LAB CHEMISTRY METHOD 01/09/2025 3:22 AM [facility] AST (SGOT) 29 10 - 42 unit/L LAB CHEMISTRY METHOD 01/09/2025 3:22 AM [facility] ALT (SGPT) 26 10 - 60 unit/L LAB CHEMISTRY METHOD 01/09/2025 3:22 AM [facility] Alkaline Phosphatase 85 42 - 121 unit/L LAB CHEMISTRY METHOD 01/09/2025 3:22 AM [facility] Total Protein 7.1 6.0 - 8.0 g/dL LAB CHEMISTRY METHOD 01/09/2025 3:22 AM [facility] Albumin 3.7 3.2 - 5.0 g/dL LAB CHEMISTRY METHOD 01/09/2025 3:22 AM [facility] Total Bilirubin 1.2 0.0 - 1.4 mg/dL LAB CHEMISTRY METHOD 01/09/2025 3:22 AM [facility] Blood Venous blood specimen / Unknown Venipuncture / Unknown 01/09/2025 2:29 AM EDT 01/09/2025 2:38 AM EDT us Alexa ROSS LAB BLOOD ORDERABLES Fin al Result [facility] [address] [place] [address], [place] [phone] * XR Chest 1 View (01/09/2025 1:00 AM EDT) Anatomical Region Laterality Modality Body Radiographic Remedios ging 01/09/2025 10:4 3 AM EDT Impressions 01/09/2025 10:45 AM EDT Emphysematous changes with chronic right upper lobe volume loss and left to right midline shift of enlarged trachea, unchanged. No infiltrates or effusions. -------- FINAL REPORT -------- Dictated By: Emily Montgomery Dictated Date: 01/09/2025 10:43 ET Assigned Physician: Emily Montgomery Reviewed and Electronically Signed By: Emily Montgomery Signed Date: 01/09/2025 10:45 ET Workstation ID: [id number] Transcribed By: Self Edit Transcribed Date: 01/09/2025 10:43 ET Narrative 01/09/2025 10:45 AM EDT INDICATION: Chest pain FINDINGS: Single portable AP view of the chest obtained. Compared to multiple prior studies most recent from April 12, 2022. Multiple overlying EKG leads and wires. Emphysematous changes with chronic volume loss within the right lung apex causing left to right midline shift of the enlarged trachea, similar to the prior studies. No infiltrates or effusions. Heart stable in size and shape. Bony structures are grossly intact and normal for the patient's age. Procedure Note Emily Montgomery MD - 01/09/2025 INDICATION: Chest pain FINDINGS: Single portable AP view of the chest obtained. Compared tomultiple prior studies most recent from April 12, 2022. Multiple overlying EKG leads and wires. Emphysematous changes with chronic volume loss within the right lung apexcausing left to right midline shift of the enlarged trachea, similar tothe prior studies. No infiltrates or effusions. Heart stable in size and shape. Bony structures are grossly intact and normal for the patient's age. IMPRESSION: Emphysematous changes with chronic right upper lobe volume loss and leftto right midline shift of enlarged trachea, unchanged. No infiltrates or effusions. -------- FINAL REPORT -------- Dictated By: Valentina, Parshant Dictated Date: 01/09/2025 10:43 ET Assigned Physician: Emily Montgomery Reviewed and Electronically Signed By: Emily Montgomery Signed Date: 01/09/2025 10:45 ET Workstation ID: [id number] Transcribed By: Self Edit Transcribed Date: 01/09/2025 10:43 ET Richard Chaparro MD IMG XR PROCEDURES Final Result * D-dimer, quantitative (01/09/2025 12:28 AM EDT) D-Dimer, Quant (D-DU) 161 <=230 ng/mL DDU LAB COAGULATION METHOD 01/09/2025 1:30 AM EDT [facility] Blood Venous blood specimen / Unknown Venipuncture / Unknown 01/09/2025 12:28 AM EDT 01/09/2025 1:15 AM EDT Narrative [facility] - 01/09/2025 1:30 AM EDT D-Dimer <230 ng/mL (D-Dimer units) is the threshold for exclusion of DVT/PE. D-Dimer may be elevated in: Critically ill, severely infected, trauma patients, DIC, acute CVA, acute DC, unstable angina, AF, old age, , and smoking. D-Dimer may be decreased with: Initiation of heparin therapy and oral anticoagulants. Richard Chaparro MD LAB BLOOD ORDERABLES Fin al Result [facility] [address] [place] [address], [place] [phone] * Lactate, with Reflex (01/08/2025 11:44 PM EDT) LACTIC ACID 1.0 0.4 - 2.0 mmol/L LAB CHEMISTRY METHOD 01/09/2025 1:43 AM EDT [facility] Blood Venous blood specimen / Unknown Venipuncture / Unknown 01/08/2025 11:44 PM EDT 01/09/2025 1:13 AM EDT Alexa ROSS LAB BLOOD ORDERABLES Fin al Result Performing Organization Address [facility]/ZIP Co de Phone Number [facility] [address] [place] [address], [place] [phone] * Troponin I High Sensitivity (01/08/2025 11:44 PM EDT) [facility] High Sensitivity Troponin I 19 <=79 ng/L LAB CHEMISTRY METHOD 01/09/2025 1:45 AM EDT [facility] Blood Venous blood specimen / Unknown Venipuncture / Unknown 01/08/2025 11:44 PM EDT 01/09/2025 1:14 AM EDT Narrative [facility] - 01/09/2025 1:45 AM EDT High levels of biotin in samples may falsely decrease hsTroponin values. Use caution when interpreting hsTroponin results in patients taking biotin who exhibit renal impairment (eGFR <60) or in patients taking more than 20 mg/day of biotin. Alexa ROSS LAB BLOOD ORDERABLES Fin al Result Performing Organization Address [facility] [[email or web address]] de Phone Number [facility] [address] [place] [address], [place] [phone] * (ABNORMAL) CBC auto differential (01/08/2025 11:44 PM EDT) Only the most recent of2 resultswithin the time period is included. [facility] WBC 9.4 4.8 - 10.8 K/mcL LAB HEMETOLOGY METHOD 01/09/2025 2:23 AM EDT [facility] RBC 8.70(H) 4.50 - 5.50 M/mcL LAB HEMETOLOGY METHOD 01/09/2025 2:23 AM EDT [facility] Hemoglobin 17.4 13.5 - 17.5 g/dL LAB HEMETOLOGY METHOD 01/09/2025 2:23 AM [facility] Hematocrit 66.2(HH) 42.0 - 54.0 % LAB HEMETOLOGY METHOD 01/09/2025 2:23 AM [facility] MCV 75.4(L) 79.0 - 98.0 FL LAB HEMETOLOGY METHOD 01/09/2025 2:23 AM [facility] MCH 19.8(L) 27.0 - 32.0 pcg LAB HEMETOLOGY METHOD 01/09/2025 2:23 AM [facility] MCHC 26.3(L) 32.0 - 37.0 g/dL LAB HEMETOLOGY METHOD 01/09/2025 2:23 AM [facility] RDW 26.9(H) 11.0 - 15.0 % LAB HEMETOLOGY METHOD 01/09/2025 2:23 AM [facility] Platelets 199 130 - 400 K/mcL LAB HEMETOLOGY METHOD 01/09/2025 2:23 AM [facility] MPV LAB HEMETOLOGY METHOD 01/09/2025 2:23 AM [facility] Comment:Not Measured NRBC 0.0 <1.0 % LAB HEMETOLOGY METHOD 01/09/2025 2:23 AM [facility] NRBC Absolute 0.00 <0.10 K/mcL LAB HEMETOLOGY METHOD 01/09/2025 2:23 AM [facility] Neutrophils Relative 53.1 % LAB HEMETOLOGY METHOD 01/09/2025 2:23 AM [facility] Lymphocytes Relative 21.1 % LAB HEMETOLOGY METHOD 01/09/2025 2:23 AM [facility] Monocytes Relative 10.0 % LAB HEMETOLOGY METHOD 01/09/2025 2:23 AM [facility] Eosinophils Relative 14.2 % LAB HEMETOLOGY METHOD 01/09/2025 2:23 AM EDT [facility] Basophils Relative 1.1 % LAB HEMETOLOGY METHOD 01/09/2025 2:23 AM EDT [facility] Immature Granulocytes Relative 0.5 % LAB HEMETOLOGY METHOD 01/09/2025 2:23 AM EDT [facility] Neutrophils Absolute 5.00 1.50 - 7.00 K/mcL LAB HEMETOLOGY METHOD 01/09/2025 2:23 AM EDT [facility] Lymphocytes Absolute 1.99 1.00 - 5.00 K/mcL LAB HEMETOLOGY METHOD 01/09/2025 2:23 AM EDT [facility] Monocytes Absolute 0.94 0.20 - 1.00 K/mcL LAB HEMETOLOGY METHOD 01/09/2025 2:23 AM EDT [facility] Eosinophils Absolute 1.34(H) 0.00 - 0.50 K/mcL LAB HEMETOLOGY METHOD 01/09/2025 2:23 AM EDT [facility] Basophils Absolute 0.10 0.00 - 0.20 K/mcL LAB HEMETOLOGY METHOD 01/09/2025 2:23 AM EDT [facility] Immature Granulocytes Absolute 0.05(H) 0.00 - 0.03 K/mcL LAB HEMETOLOGY METHOD 01/09/2025 2:23 AM EDT [facility] Blood Venous blood specimen / Unknown Venipuncture / Unknown 01/08/2025 11:44 PM EDT 01/09/2025 1:14 AM EDT us Alexa ROSS LAB BLOOD ORDERABLES Fin al Result [facility] [address] [place] [address], * (ABNORMAL) B-Type Natriuretic Peptide (BNP) (01/08/2025 11:44 PM EDT) Pathologist [facility] BNP 204(H) <=100 pcg/mL LAB CHEMISTRY METHOD 01/09/2025 1:55 AM EDT [facility] Blood Venous blood specimen / Unknown Venipuncture / Unknown 01/08/2025 11:44 PM EDT 01/09/2025 1:14 AM EDT Alexa ROSS LAB BLOOD ORDERABLES Fin al Result [facility] [address] [place] [address], [place] [phone] * 12-Lead ECG (01/08/2025 11:42 PM EDT) [facility] Ventricular Rate ECG 63 BPM GEMUSE Atrial Rate 63 BPM GEMUSE P-R Interval 188 ms GEMUSE QRS Duration 102 ms GEMUSE Q-T Interval 406 ms GEMUSE QTc 415 ms GEMUSE P Wave [place] 68 degrees GEMUSE R [place] -66 degrees GEMUSE T [place] -133 degrees GEMUSE ECG Interpretation Sinus rhythm with Premature ventricular complexes or Fusion complexes Right atrial enlargement Left axis deviation Voltage criteria for left ventricular hypertrophy Cannot rule out Septal infarct (cited on or before 14-FEB-2024) Inferior infarct , age undetermined T wave abnormality, consider lateral ischemia Abnormal ECG When compared with ECG of 14-FEB-2024 06:25, Significant changes have occurred Confirmed by SHERRON YEN ([id number]) on 01/10/2025 11:16:34 AM GEMUSE 01/08/2025 11:4 2 PM EDT 01/10/2025 11:16 AM EDT Alexa ROSS ECG ORDERABLES Final Re sult GEMUSE * (ABNORMAL) PSA total, free and complexed (12/10/2024 10:34 AM EDT) PSA 0.90 0.00 - 4.00 ng/mL LAB CHEMISTRY METHOD 12/10/2024 2:10 PM EDT [facility] PSA, Complexed 0.67 0.00 - 3.00 ng/mL LAB CHEMISTRY METHOD 12/10/2024 2:10 PM EDT [facility] PSA, Free 0.2 ng/mL LAB CHEMISTRY METHOD 12/10/2024 2:10 PM EDT [facility] PSA, Free Pct 22.2(L) >25.0 % LAB CHEMISTRY METHOD 12/10/2024 2:10 PM EDT [facility] Blood Venous blood specimen / Unknown Venipuncture / Unknown 12/10/2024 10:34 AM EDT 12/10/2024 10:34 AM EDT [facility] - 12/10/2024 2:10 PM EDT Free PSA is a calculated value. The diagnostic usefulness of % free PSA has not been established in patients with Total PSA below 2.6 or above 10 ng/mL. This test was performed using the Centaur Chemiluminescent method. PSA values obtained with other methods cannot be used interchangeably. Ed ROSS LAB BLOOD ORDERABLES Final Res ult [facility] [address] [place] [address], * Lipid panel with reflex to direct LDL (12/10/2024 10:34 AM EDT) Cholesterol 154 0 - 200 mg/dL LAB CHEMISTRY METHOD 12/10/2024 1:38 PM EDT [facility] Triglycerides 149 0 - 150 mg/dL LAB CHEMISTRY METHOD 12/10/2024 1:38 PM EDT [facility] HDL 44 >=40 mg/dL LAB CHEMISTRY METHOD 12/10/2024 1:38 PM EDT [facility] LDL Calculated 80 0 - 100 mg/dL LAB CHEMISTRY METHOD 12/10/2024 1:38 PM EDT [facility] VLDL Cholesterol Ander 29.8 mg/dL LAB CHEMISTRY METHOD 12/10/2024 1:38 PM EDT [facility] Non HDL Chol. (LDL+VLDL) 110 <145 mg/dL LAB CHEMISTRY METHOD 12/10/2024 1:38 PM EDT [facility] Chol/HDL Ratio 3.5 0.0 - 4.4 LAB CHEMISTRY METHOD 12/10/2024 1:38 PM EDT [facility] Blood Venous blood specimen / Unknown Venipuncture / Unknown 12/10/2024 10:34 AM EDT 12/10/2024 10:34 AM EDT Ed ROSS LAB BLOOD ORDERABLES Final Res ult Performing Organization Address City/[facility]/ZIP Co de Phone Number [facility] [address] [place] [address], * C-reactive protein (12/10/2024 10:34 AM EDT) C-Reactive Protein <0.29 <=0.50 mg/dL LAB CHEMISTRY METHOD 12/10/2024 1:38 PM EDT [facility] Blood Venous blood specimen / Unknown Venipuncture / Unknown 12/10/2024 10:34 AM EDT 12/10/2024 10:34 AM EDT Petty ROSS LAB BLOOD ORDERABLES Final Resul t [facility] [address] [place] [address], * (ABNORMAL) Hemoglobin A1c (12/10/2024 10:34 AM EDT) Hemoglobin A1C 7.3(H) <6.5 % LAB CHEMISTRY METHOD 12/10/2024 2:15 PM EDT [facility] Mean Bld Glu Estim. 163 mg/dL LAB CHEMISTRY METHOD 12/10/2024 2:15 PM EDT [facility] Blood Venous blood specimen / Unknown Venipuncture / Unknown 12/10/2024 10:34 AM EDT 12/10/2024 10:34 AM EDT us Ed ROSS LAB BLOOD ORDERABLES Final Res ult [facility] [address] [place] [address], * Diabetes Foot Exam (01/10/2024) Pathologist [facility] Diabetes: Annual Foot Exam abstracted Historical Provider MD HEALTH MAINTENANCE Final Result * Depression Screening (07/12/2023) Pathologist [facility] Depression Screening abstracted Historical Provider MD HEALTH MAINTENANCE Final Result from Last 3 [...] currently active code status orders. Care Teams Bioinformatics Associate Relationship Specialty Start Date End Date Tammy Joshi MD [address] [place] [id number] PCP - General 08/25/1998
--- OUTSIDE RECORDS SUMMARY | 2025-01-16 14:23 | XMS_ITS | Clinical Summary ---
Author Organization [facility] Address [address] [place] [address] Care Team Providers Care Principal Secretary Name Role Phone Alexander Joshi MD Primary [...] Tdap) 07/27/2023 07/26/2013 COVID-19 Vaccine (2 - 2024-2 6 season) 2025 07/17/2020 Influenza Vaccine (#1) 2025 , 01/27/2021 Pneumococcal Vaccine Completed 01/16/2020, 07/19/2013 Hepatitis B Vaccines Aged Out No long er eligible based on patient's age to complete this topic RSV Ped < 20 months Aged Out No longe r eligible based on patient's age to complete this topic Care Teams Principal Secretary Relationship Specialty Start Date End Date Alexander Joshi MD PCP - General Can Vacuum Tester 09/14/19
--- OUTSIDE RECORDS SUMMARY | 2025-01-16 14:23 | XMS_ITS | Encounter Summary ---
Author Organization [facility] Address [address] [place] [address] Care Team Providers Care Supervisory Geographer Name Role Phone Tammy Joshi MD Primary Care Provider [phone] Encounter Details Date Type Department Care Team (Late st Contact Info) Description 01/14/2025 Telephone [facility] Hematology Oncology [address] [place] [address] Jasmin Green MD [address] [place] [address] Social History Tobacco Use Types Packs/Day Years [...] for your loved ones. For example, child psychiatrist or elderly care for an older adult? [...] as of this encounter Progress Notes * Marko Shelby MA - 01/14/2025 1:58 PM EDT Letter in chart, handed to pt [facility] * Carrie Christianson - 01/14/2025 1:30 PM EDT Pt arrived in waiting room wanting a note so he can get phlebotomy [facility] wont do due to blood pressure Pt here waiting for an answer * Michela Albright - 01/14/2025 11:06 AM EDT [facility] calling regarding patient, patient keeps insisting that he needs phlebotomy and they keep trying to explain that they can not draw without a letter stating its ok to draw as is bp has been very elevated every time he goes. documented in this encounter Plan of Treatment Upcoming Encounters Date Type Department Care Team (Late st Contact Info) Description 01/29/2025 10:00 AM EDT Office Visit [facility] Hematology Oncology [address] [place] [phone] Jasmin Green MD [address] [place] [address] 04/22/2025 11:15 AM EST Office Visit [facility] Hematology Oncology [address] [place] [phone] Jasmin Green MD [address] [place] [address] documented as of this encounter Visit Diagnoses Not on filedocumented in this encounter Additional Health Concerns Assessment Noted Time PHQ-9 Depression Total Score: 0 09/27/19 11:17 AM EDT documented as of this encounter Care Teams Supervisory Geographer Relationship Specialty Start Date End Date Tammy Joshi MD [address] [place] [id number] PCP - General 08/25/1998 documented as of this encounter
== END 2025-01-16 11:13 | disposition home or self-care (01) ==
LOC: HO.BBR 11:12
PROVIDERS: Visit Provider Internal Medicine
DX: D45 Polycythemia vera (principal)
CPT/HCPCS: 85018; 99195

== ENCOUNTER 2025-01-31 10:02 | Outpatient (REF) | payer MEDICARE, SELFPAY ==
--- OUTSIDE RECORDS SUMMARY | 2025-01-29 10:00 | XMS_ITS | Encounter Summary ---
Author Organization [employer] Address [address] [place] [address] Care Team Providers Care Lead Refinery Supervisor Name Role Phone Tammy Joshi MD Primary Care Provider [phone] Reason for Visit * Reason Comments Follow-up Encounter Details Date Type Department Care Team ([facility] st Contact Info) Description 01/29/2025 10:00 AM EDT Office Visit [facility] Hematology Oncology [address] [place] [phone] Jasmin Green MD [address] [place] [address] Primary polycythemia (CMS/HCC V24, CMS/HCC V28) (Primary Dx) Social History Tobacco Use Types [...] for your loved ones. For example, child and adolescent psychiatrist or elderly care for an older [...] Sign Reading Time Taken Comments Blood Pressure 163/76 01/29/2025 10:01 AM EDT Pulse 61 01/29/2025 10:01 AM EDT Temperature 36.6 C (97.8 F) 01/29/2025 10:01 AM EDT Respiratory Rate - - Oxygen Saturation 98% 01/29/2025 10:01 AM EDT Inhaled Oxygen Concentration - - Weight 53.5 kg (118 lb) 01/29/2025 10:01 AM EDT Height - - Body Mass Index 19.05 01/11/2025 1:43 PM EDT documented in this encounter Progress Notes * Jasmin Green MD - 01/29/2025 10:00 AM EDT ONC CANCER FOLLOW UP CHIEF COMPLAINT: Follow-up IDENTIFIER:Sreekanth Aguirre is a 84 y.o. male. 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, was supposed to have therapeutic phlebotomy but because of elevated blood pressure, blood then refused to do phlebotomy ROS: Patient has been feeling fair Patient did not have therapeutic phlebotomy because of elevated blood pressure Patient saw PCP who added blood pressure medication currently patient has been taking losartan and amlodipine 2.5 mg PAST MEDICAL HISTORY: Patient Active Problem List Diagnosis Abdominal pain Abnormal CT scan, lung BPH (benign prostatic hyperplasia) Carotid bruit Chronic obstructive airway disease (CMS/HCC V24, CMS/[facility] V28) Calculus of kidney Diverticulosis 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 (CMS/HCC V24, CMS/[facility] V28) Ear discharge Elevated BP without diagnosis of hypertension Erectile dysfunction Hypercholesteremia Hypertension Polycythemia Renal cyst Acute diverticulitis Past Medical History: Diagnosis Date Abdominal pain DX:Abdominal pain Calculus of kidney 05/23/2006 DX:Calculus of kidney; COMMENT: Bilateral on cat scan Carotid bruit 07/19/2013 DX:Carotid bruit Chronic airway obstruction, not elsewhere classified 01/14/2007 DX:Chronic airway obstruction, not elsewhere classified Diverticulosis 11/26/2010 DX:Diverticulosis; COMMENT: Diverticulitis 11/2010 Ear discharge 09/05/2009 DX:Ear discharge; COMMENT: Left--Dr. Mcmahan Historical Medical DX 08/17/2013 DX:Polycythemia Hyperlipidemia 06/05/2008 DX:Hyperlipidemia; COMMENT: 05/17--rec med, pt declined Hypertension 10/30/2019 Renal cyst 11/27/2010 DX:Renal cyst; COMMENT: On cat scan SOCIAL HISTORY: Social History Tobacco Use Smoking status: Former Current packs/day: 0.00 Types: Cigarettes Quit date: 05/09/1988 Years since quittin.7 Smokeless tobacco: Former Quit date: 05/09/1979 Substance Use Topics Alcohol use: Yes Comment: rarely FAMILY HISTORY: Family History Problem Relation Name Age of [...] Macular degeneration Neg Hx Strabismus Neg Hx Family Status Relation Name Status Father Mother Daughter Alive Daughter Alive Son Alive Brother Brother Brother Sister Alive MGM (Not Specified) MGF (Not Specified) PGM (Not Specified) PGF (Not Specified) Aunt (Not Specified) Uncle (Not Specified) Other (Not Specified) Other (Not Specified) Other (Not Specified) Neg Hx (Not Specified) No partnership data on file Current Outpatient Medications: amLODIPine (NORVASC) 2.5 mg tablet, Take 1 tablet (2.5 mg total) by mouth 1 (one) time each day., Disp: 30 each, Rfl: 5 aspirin 81 mg EC tablet, 1 TABLET DAILY, Disp: , Rfl: CHOLECALCIFEROL, VITAMIN D3, ORAL, Take by mouth daily., Disp: , Rfl: losartan (COZAAR) 100 mg tablet, Take 1 tablet (100 mg total) by mouth 1 (one) time each day., Disp: 90 tablet, Rfl: 0 MULTIVITAMIN ORAL, QD, Disp: , Rfl: tamsulosin (FLOMAX) 0.4 mg 24 hr capsule, Take 1 capsule (0.4 mg total) by mouth 1 (one) time each day. Capsules should be taken 30 minutes following the same meal each day., Disp: 30 each, Rfl: 2 Allergies Allergen Reactions Ibuprofen Tachycardia Iodinated Contrast Media Rash PHYSICAL EXAM: Visit Vitals BP (!) 163/76 (BP Location: Right arm, Patient Position: Sitting, BP Cuff Size: Adult) Pulse 61 Temp 36.6 ??C (97.8 ??F) (Temporal) Wt 53.5 kg (118 lb) SpO2 98% BMI 19.05 kg/m?? Smoking Status Former BSA 1.6 m?? ECOG 0-1 APPEARANCE: Alert and oriented in no acute distress EYES: nonicteric sclera pink conjunctiva ORAL CAVITY: No erythema or exudates NECK: Neck supple, no adenopathy, HEART: normal S1 and S2 LUNG: clear to auscultation bilaterally LYMPH NODES: No palpable superficial adenopathy ABDOMEN: soft, nontender and no significant organomegaly appreciated EXTREMITIES: Trace edema of lower extremity LABS: WBC 9.4, hemoglobin 17.4 g, hematocrit 66.2% and platelet count 199 IMPRESSION: 1. 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, patient was supposed to have therapeutic phlebotomy every 3 months but because of elevated blood pressure he did not have therapeutic phlebotomy so I recommend patient to increase amlodipine and go for therapeutic phlebotomy every month for the next 3-4 time and then I will reassess him PLAN: Recommend to double the amlodipine to 5 mg daily Recommend to go for therapeutic phlebotomy every month and I will reassess him in 3 months Jasmin Green MD documented in this encounter Plan of Treatment Upcoming Encounters Date Type Department Care Team (Late st Contact Info) Description 04/22/2025 11:15 AM EST Office Visit [facility] Hematology Oncology [address] [place] [phone] Jasmin Green MD [address] [place] [address] documented as of this encounter Visit Diagnoses Diagnosis Primary polycythemia (CMS/HCC V24, CMS/HCC V28)- Primary Polycythemia vera documented in this encounter Additional Health Concerns Assessment Noted Time PHQ-9 Depression Total Score: 0 09/27/19 25 11:17 AM EDT documented as of this encounter Care Teams Lead Refinery Supervisor Relationship Specialty Start Date End Date Tammy Joshi MD [address] [place] [address] PCP - General 08/25/1998 documented as of this encounter
--- OUTSIDE RECORDS SUMMARY | 2025-01-31 12:11 | XMS_ITS | Clinical Summary ---
Author Organization [facility] Address [address] [place] [address] Care Team Providers Care Digital Composer Name Role Phone Alexander Joshi MD Primary [...] age to complete this topic Care Teams Digital Composer Relationship Specialty Start Date End Date Alexander Joshi MD PCP - General Custody Officer 09/14/19
--- OUTSIDE RECORDS SUMMARY | 2025-01-31 12:11 | XMS_ITS | Encounter Summary ---
Author Organization [facility] Address [address] [place] [address] Care Team Providers Care Header Boss Name Role Phone Tammy Joshi MD Primary Care Provider [phone] Reason for Visit * Reason Onset Date Comments Medication Problem 01/03/2025 Encounter Details Date Type Department Care Team ([facility] Contact Info) Description 01/03/2025 Telephone Adult Medicine [facility] [address] [place] [phone] Tammy Joshi MD [address] [place] [address] Social History Tobacco Use Types Packs/Day Years [...] for your loved ones. For example, child nutrition assistant or elderly care for an older adult? [...] EDT Patient has appt tomorrow with Jaylene, GRANTS AND CONTRACTS ASSISTANT. Spoke with provider regarding background of current [...] Joshi MD Who is patients PCP?: Tammy Joshi MD Payor: [facility] MEDICARE / Plan: [facility] MEDICARE COMPLETE / Product Type: *No Product type* / documented in this encounter Plan of Treatment Upcoming Encounters Date Type Department Care Team (Late st Contact Info) Description 04/22/2025 11:15 AM EST Office Visit [facility] Hematology Oncology [address] [place] [phone] Jasmin Green MD [address] [place] [address] documented as of this encounter Visit Diagnoses Not on filedocumented in this encounter Additional Health Concerns Assessment Noted Time PHQ-9 Depression Total Score: 0 09/27/19 25 11:17 AM EDT documented as of this encounter Care Teams Header Boss Relationship Specialty Start Date End Date Tammy Joshi MD [address] [place] [id number] PCP - General 08/25/1998 documented as of this encounter
--- OUTSIDE RECORDS SUMMARY | 2025-01-31 12:11 | XMS_ITS | Clinical Summary ---
Author Organization [facility] Address [address] [place] [phone] Phone Care Team Providers Care Mc Kay Stitcher Name Role Phone Tammy Joshi MD Primary Care Provider [phone] Allergies Active Allergy Reactions Criticality Noted Date [...] mellitus) type II controlled with renal manifestation ([facility] V24, [facility] V28) 11/04/2016 Polycythemia 08/17/2013 Carotid bruit 07/19/2013 Renal cyst 11/27/2010 Overview (04/13/2024): On cat scan Complex cyst on CT 07/24. MRI recommended Diverticulosis 11/26/2010 Overview (04/13/2024): Diverticulitis 11/2010 Ear discharge 09/05/2009 Overview (04/13/2024): Left--Dr. Mcmahan Hypercholesteremia 06/05/2008 Overview (04/13/2024): 05/17--rec med, pt declined Chronic obstructive airway d isease ([facility] V24, [facility] V28) 01/14/2007 Overview (04/13/2024): by CT 12/13 Calculus of kidney 05/23/2006 Overview (04/13/2024): Bilateral on cat scan Encounters Date Type Department Care Team Description 01/29/2025 10:00 AM EDT Office Visit [facility] Hematology Oncology [address] [place] [phone] Jasmin Green MD Primary polycythemia ([facility] V24, [facility] V28) (Primary Dx) 01/14/2025 Telephone [facility] Hematology Oncology [address] [place] [address] Jasmin Green MD 01/11/2025 1:45 PM EDT Office Visit Adult Medicine - [place] [address] [place] [phone] Jaylene Peacock NP Hypertension, unspecified type (Primary Dx) 01/09/2025 Telephone [facility] Hematology Oncology [address] [place] [phone] Jasmin Green MD 01/08/2025 11:17 PM EDT - 01/09/2025 4:39 AM EDT Emergency [facility] Emergency [address] [place] [address] Richard Chaparro MD Elevated blood pressure reading (Primary Dx); Abnormal EKG Discharge Disposition: Home or Self Care 01/03/2025 Telephone Adult Medicine - [address] [phone] Tammy Joshi MD 01/03/2025 Telephone Adult Medicine [address] [phone] Tammy Joshi MD 01/01/2025 Telephone Adult Medicine - [address] [phone] Tammy Joshi MD 01/01/2025 Telephone [facility] Hematology Oncology [address] [place] [phone] Jasmin Green MD 12/24/2024 11:30 AM EDT Office Visit [facility] Hematology Oncology [address] [place] [phone] Jasmin Green MD Polycythemia 12/10/2024 10:00 AM EDT Office Visit Adult Medicine [address] [phone] Petty Krishnan PA Primary hypertension (Primary Dx); Polycythemia; Benign prostatic hyperplasia with lower urinary tract symptoms, symptom details unspecified; Lower abdominal pain; 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, without long-term current use of insulin ([facility] V24, [facility] V28) 12/10/2024 Telephone Adult Medicine - [place] [address] [place] [phone] Melinda Stover RN 11/20/2024 10:40 AM EDT Office Visit Gastroenterology - [place] [address] [place] [address] Katherine Barnes, VERONICA Left lower quadrant abdominal pain (Primary Dx); History of diverticulitis of colon from Last 3 Months Immunizations Name Administration [...] 09/05/2009 DX:Ear discharge ; COMMENT: Left--Dr. Mcmahan [phone] Diverticulosis 11/26/2010 DX:Diverticulosi s; COMMENT: Diverticulitis 11/2010 [...] for your loved ones. For example, children's author or elderly care for an older adult? [...] F) 01/29/2025 10:01 AM EDT Respiratory Rate 18 01/09/2025 1:27 AM EDT Oxygen Saturation 98% 01/29/2025 10:01 AM EDT Inhaled Oxygen Concentration - - Weight 53.5 kg (118 lb) 01/29/2025 10:01 AM EDT Height 167.6 cm (5' 6 ) 01/11/2025 1:43 PM EDT Body Mass Index 19.05 01/11/2025 1:43 PM EDT Plan of Treatment Upcoming Encounters Date Type Department Care Team (Late st Contact Info) Description 04/22/2025 11:15 AM EST Office Visit [facility] Hematology Oncology [address] [place] [phone] Jasmin Green MD [address] [place] [address] Health Maintenance Due Date Last Done Comments Diabetes: Annual Retina Eye Exam 1950 RSV Immunization Adult Patients (1 - 1-dose 75+ series) 2014 DTaP,Tdap,and Td Vaccines (3 - Td or Tdap) 07/27/2023 07/26/2013, 03/05/2004 Zoster Vaccines (3 of 3) 01/02/2025 11/07/2024, 04/05/2012 COVID-19 Vaccine ( - season) 2025 03/31/2021, 07/17/2020, 06/19/2020 Influenza [...] complication, without long-term current use of insulin (CMS/HCC V24, CMS/HCC V28) MICROALBUMIN CREATININE URINE RATIO Routine 01/11/2025 2:08 PM EDT 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, without long-term current use of insulin (CMS/HCC V24, CMS/HCC V28) ECG ANNOTATED 01/10/2025 ECG ANNOTATED 01/10/2025 [...] complication, without long-term current use of insulin ([facility] V24, [facility] V28) LIPID PANEL WITH REFLEX TO DIRECT LDL Routine 12/10/2024 10:34 AM EDT 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, without long-term current use of insulin ([facility] V24, [facility] V28) HEMOGLOBIN A1C Routine 12/10/2024 10:34 AM EDT 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, without long-term current use of insulin ([facility] V24, [facility] V28) COMPREHENSIVE METABOLIC PANEL Routine 12/10/2024 10:34 [...] LAB CHEMISTRY METHOD 01/11/2025 9:36 PM EDT [facility] Microalb, Ur 110.0(H) 0.0 - 29.0 mg/L LAB CHEMISTRY METHOD 01/11/2025 9:36 PM EDT [facility] Microalb/Crea t Ratio 95(H) <30 mg/g creat LAB CHEMISTRY METHOD 01/11/2025 9:36 PM EDT [facility] Urine Urine specimen obtained by clean catch procedure / Unknown Non-blood Collection / Unknown 01/11/2025 2:08 PM EDT 01/11/2025 2:08 PM EDT us Petty ROSS LAB URINE ORDERABLES Final Resul t [facility] [address] [place] [address], * (ABNORMAL) Basic metabolic panel (01/11/2025 2:08 PM EDT) Sodium 140 133 - 145 mmol/L LAB CHEMISTRY METHOD 01/11/2025 5:54 PM EDT [facility] Potassium 4.3 3.5 - 5.5 mmol/L LAB CHEMISTRY METHOD 01/11/2025 5:54 PM EDT [facility] Chloride 106 96 - 110 mmol/L LAB CHEMISTRY METHOD 01/11/2025 5:54 PM T [facility] CO2 31 21 - 32 mmol/L LAB CHEMISTRY METHOD 01/11/2025 5:54 PM [facility] Anion Gap 3 3 - 11 LAB CHEMISTRY METHOD 01/11/2025 5:54 PM [facility] Glucose 108(H) 70 - 100 mg/dL LAB CHEMISTRY METHOD 01/11/2025 5:54 PM [facility] BUN 17 5 - 25 mg/dL LAB CHEMISTRY METHOD 01/11/2025 5:54 PM [facility] Creatinine 1.03 0.70 - 1.30 mg/dL LAB CHEMISTRY METHOD [facility]/11[facility]25 5[facility] e[facility] 71 >=60 mL/min/1. 73m2 LAB CHEMISTRY METHOD 01/11/2025 5:54 PM [facility] Comment:Calculation based on the Chronic Kidney Disease Epidemiology Collaboration (CKD-EPI) equation refit without adjustment for race. BUN/Creatinine Ratio 16.5 LAB CHEMISTRY METHOD 01/11/2025 5:54 PM [facility] Calcium 9.4 8.5 - 10.5 mg/dL LAB CHEMISTRY METHOD 01/11/2025 5:54 PM [facility] Blood Venous blood specimen / Unknown Venipuncture / Unknown 01/11/2025 2:08 PM EDT 01/11/2025 2:08 PM EDT Petty ROSS LAB BLOOD ORDERABLES Final Resul t Performing Organization Address [facility]/ZIP Co de Phone Number [facility] [address] [place] [address], [place] [phone] * ECG-Annotated (01/10/2025) Only the most recent of2 resultswithin the time period is included. Provider Onbase MD ECG ORDERABLES Final Result * Magnesium (01/09/2025 2:29 AM EDT) Pathologist [facility] Magnesium 2.1 1.9 - 2.6 mg/dL LAB CHEMISTRY METHOD 01/09/2025 3:14 AM EDT [facility] Blood Venous blood specimen / Unknown Venipuncture / Unknown 01/09/2025 2:29 AM EDT 01/09/2025 2:38 AM EDT Alexa ROSS LAB BLOOD ORDERABLES Fin al Result Performing Organization Address [facility] de Phone Number [facility] [address] [place] [address], [place] [phone] * Lipase (01/09/2025 2:29 AM EDT) Lipase 49 13 - 75 unit/L LAB CHEMISTRY METHOD 01/09/2025 3:14 AM EDT [facility] Blood Venous blood specimen / Unknown Venipuncture / Unknown 01/09/2025 2:29 AM EDT 01/09/2025 2:38 AM EDT Alexa ROSS LAB BLOOD ORDERABLES Fin al Result Performing Organization Address City/[facility]/ZIP Co de Phone Number [facility] [address] [place] [address], [place] [phone] * (ABNORMAL) Comprehensive Metabolic Panel (CMP) (01/09/2025 2:29 AM EDT) Only the most recent of2 resultswithin the time period is included. Sodium 139 133 - 145 mmol/L LAB CHEMISTRY METHOD 01/09/2025 3:22 AM [facility] Potassium 4.5 3.5 - 5.5 mmol/L LAB CHEMISTRY METHOD 01/09/2025 3:22 AM [facility] Chloride 106 96 - 110 mmol/L LAB CHEMISTRY METHOD 01/09/2025 3:22 AM [facility] CO2 29 21 - 32 mmol/L LAB CHEMISTRY METHOD 01/09/2025 3:22 AM [facility] Anion Gap 4 3 - 11 LAB CHEMISTRY METHOD 01/09/2025 3:22 AM [facility] Glucose 112(H) 70 - 100 mg/dL LAB CHEMISTRY METHOD 01/09/2025 3:22 AM [facility] BUN 14 5 - 25 mg/dL LAB CHEMISTRY METHOD 01/09/2025 3:22 AM [facility] Creatinine 0.82 0.70 - 1.30 mg/dL LAB CHEMISTRY METHOD 01/09/2025 3:22 AM [facility] eGFR 86 >=60 mL/min/1. 73m2 LAB CHEMISTRY METHOD 01/09/2025 3:22 AM [facility] Comment:Calculation based on the Chronic Kidney Disease Epidemiology Collaboration (CKD-EPI) equation refit without adjustment for race. BUN/Creatinine Ratio 17.1 LAB CHEMISTRY METHOD 01/09/2025 3:22 AM [facility] Calcium 9.2 8.5 - 10.5 mg/dL LAB CHEMISTRY METHOD 01/09/2025 3:22 AM [facility] AST (SGOT) 29 10 - 42 unit/L LAB CHEMISTRY METHOD 01/09/2025 3:22 AM EDT [facility] ALT (SGPT) 26 10 - 60 unit/L LAB CHEMISTRY METHOD 01/09/2025 3:22 AM EDT [facility] Alkaline Phosphatase 85 42 - 121 unit/L LAB CHEMISTRY METHOD 01/09/2025 3:22 AM EDT [facility] Total Protein 7.1 6.0 - 8.0 g/dL LAB CHEMISTRY METHOD 01/09/2025 3:22 AM EDT [facility] Albumin 3.7 3.2 - 5.0 g/dL LAB CHEMISTRY METHOD 01/09/2025 3:22 AM EDT [facility] Total Bilirubin 1.2 0.0 - 1.4 mg/dL LAB CHEMISTRY METHOD 01/09/2025 3:22 AM EDT [facility] Blood Venous blood specimen / Unknown Venipuncture / Unknown 01/09/2025 2:29 AM EDT 01/09/2025 2:38 AM EDT Alexa ROSS LAB BLOOD ORDERABLES Fin al Result [facility] [address] [place] [address], * XR Chest 1 View (01/09/2025 1:00 [...] Signed Date: 01/09/2025 10:45 ET Workstation ID: [id number] Transcribed By: Self Edit Transcribed Date: 01/09/2025 [...] Signed Date: 01/09/2025 10:45 ET Workstation ID: [id number] Transcribed By: Self Edit Transcribed Date: 01/09/2025 10:43 ET us Richard Chaparro MD IMG XR PROCEDURES Final Result * D-dimer, quantitative (01/09/2025 12:28 AM EDT) D-Dimer, Quant (D-DU) 161 <=230 ng/mL DDU LAB COAGULATION METHOD 01/09/2025 1:30 AM EDT [facility] Blood Venous blood specimen / Unknown Venipuncture / Unknown 01/09/2025 12:28 AM EDT 01/09/2025 1:15 AM EDT Narrative [facility] - 01/09/2025 1:30 AM EDT D-Dimer <230 ng/mL (D-Dimer units) is the threshold for exclusion of DVT/PE. D-Dimer may be elevated in: Critically ill, severely infected, trauma patients, DIC, acute CVA, acute [place], unstable angina, AF, old age, , and smoking. D-Dimer may be decreased with: Initiation of heparin therapy and oral anticoagulants. Richard Chaparro MD LAB BLOOD ORDERABLES Fin al Result Performing Organization Address [facility] Co de Phone Number [facility] [address] [place] [address], * Lactate, with Reflex (01/08/2025 11:44 PM EDT) LACTIC ACID 1.0 0.4 - 2.0 mmol/L LAB CHEMISTRY METHOD 01/09/2025 1:43 AM EDT [facility] Blood Venous blood specimen / Unknown Venipuncture / Unknown 01/08/2025 11:44 PM EDT 01/09/2025 1:13 AM EDT Alexa ROSS LAB BLOOD ORDERABLES Fin al Result Performing Organization Address City/[facility]/ZIP Co de Phone Number [facility] [address] [place] [address], [place] [phone] * Troponin I High Sensitivity (01/08/2025 11:44 PM EDT) High Sensitivity Troponin I 19 <=79 ng/L LAB CHEMISTRY METHOD 01/09/2025 1:45 AM EDT [facility] Blood Venous blood specimen / Unknown Venipuncture / Unknown 01/08/2025 11:44 PM EDT 01/09/2025 1:14 AM EDT Narrative [facility] - 01/09/2025 1:45 AM EDT High levels of biotin in samples may falsely decrease hsTroponin values. Use caution when interpreting hsTroponin results in patients taking biotin who exhibit renal impairment (eGFR <60) or in patients taking more than 20 mg/day of biotin. us Alexa ROSS LAB BLOOD ORDERABLES Fin al Result [facility] [address] [place] [address], * (ABNORMAL) CBC auto differential (01/08/2025 11:44 PM EDT) Only the most recent of2 resultswithin the time period is included. WBC 9.4 4.8 - 10.8 K/mcL LAB HEMETOLOGY METHOD 01/09/2025 2:23 AM [facility] RBC 8.70(H) 4.50 - 5.50 M/mcL LAB HEMETOLOGY METHOD 01/09/2025 2:23 AM [facility] Hemoglobin 17.4 13.5 - 17.5 g/dL LAB HEMETOLOGY METHOD 01/09/2025 2:23 AM [facility] Hematocrit 66.2(HH) 42.0 - 54.0 % LAB HEMETOLOGY METHOD 01/09/2025 2:23 AM [facility] MCV 75.4(L) 79.0 - 98.0 FL LAB HEMETOLOGY METHOD 01/09/2025 2:23 AM [facility] MCH 19.8(L) 27.0 - 32.0 pcg LAB HEMETOLOGY METHOD 01/09/2025 2:23 AM [facility] MCHC 26.3(L) 32.0 - 37.0 g/dL LAB HEMETOLOGY METHOD 01/09/2025 2:23 AM [facility] RDW 26.9(H) 11.0 - 15.0 % LAB HEMETOLOGY METHOD 01/09/2025 2:23 AM [facility] Platelets 199 130 - 400 K/mcL LAB HEMETOLOGY METHOD 01/09/2025 2:23 AM [facility] MPV LAB HEMETOLOGY METHOD 01/09/2025 2:23 AM [facility] Comment:Not Measured NRBC 0.0 <1.0 % LAB HEMETOLOGY METHOD 01/09/2025 2:23 AM [facility] NRBC Absolute 0.00 <0.10 K/mcL LAB HEMETOLOGY METHOD 01/09/2025 2:23 AM [facility] Neutrophils Relative 53.1 % LAB HEMETOLOGY METHOD 01/09/2025 2:23 AM [facility] Lymphocytes Relative 21.1 % LAB HEMETOLOGY METHOD 01/09/2025 2:23 AM [facility] Monocytes Relative 10.0 % LAB HEMETOLOGY METHOD 01/09/2025 2:23 AM [facility] Eosinophils Relative 14.2 % LAB HEMETOLOGY METHOD 01/09/2025 2:23 AM [facility] Basophils Relative 1.1 % LAB HEMETOLOGY METHOD 01/09/2025 2:23 AM [facility] Immature Granulocytes Relative 0.5 % LAB HEMETOLOGY METHOD 01/09/2025 2:23 AM [facility] Neutrophils Absolute 5.00 1.50 - 7.00 K/mcL LAB HEMETOLOGY METHOD 01/09/2025 2:23 AM EDT [facility] Lymphocytes Absolute 1.99 1.00 - 5.00 K/mcL LAB HEMETOLOGY METHOD 01/09/2025 2:23 AM EDT [facility] Monocytes Absolute 0.94 0.20 - 1.00 K/[facility] HEMETOLOGY METHOD 01/09/2025 2:23 AM EDT [facility] Eosinophils Absolute 1.34(H) 0.00 - 0.50 K/[facility] LAB HEMETOLOGY METHOD 01/09/2025 2:23 AM EDT [facility] Basophils Absolute 0.10 0.00 - 0.20 K/[facility] LAB HEMETOLOGY METHOD 01/09/2025 2:23 AM EDT [facility] Immature Granulocytes Absolute 0.05(H) 0.00 - 0.03 K/[facility] LAB HEMETOLOGY METHOD 01/09/2025 2:23 AM EDT [facility] Blood Venous blood specimen / Unknown Venipuncture / Unknown 01/08/2025 11:44 PM EDT 01/09/2025 1:14 AM EDT Alexa ROSS LAB BLOOD ORDERABLES Fin al Result [facility] [address] [place] [address], * (ABNORMAL) B-Type Natriuretic Peptide (BNP) (01/08/2025 11:44 PM EDT) BNP 204(H) <=100 pcg/mL LAB CHEMISTRY METHOD 01/09/2025 1:55 AM EDT [facility] Blood Venous blood specimen / Unknown Venipuncture / Unknown 01/08/2025 11:44 PM EDT 01/09/2025 1:14 AM EDT Alexa ROSS LAB BLOOD ORDERABLES Fin al Result [facility] [address] [place] [address], * 12-Lead ECG (01/08/2025 11:42 PM EDT) Ventricular Rate ECG 63 BPM GEMUSE Atrial Rate 63 BPM GEMUSE P-R Interval 188 ms GEMUSE QRS Duration 102 ms GEMUSE Q-T Interval 406 ms GEMUSE QTc 415 ms GEMUSE P Wave [place] 68 degrees GEMUSE R [place] -66 degrees GEMUSE T [place] -133 degrees GEMUSE ECG Interpretation Sinus rhythm [...] Res ult [facility] [address] [place] [address], [place] [phone] * Lipid panel with reflex to direct LDL (12/10/2024 10:34 AM EDT) Cholesterol 154 0 - 200 mg/dL LAB CHEMISTRY METHOD 12/10/2024 1:38 PM [facility] Triglycerides 149 0 - 150 mg/dL LAB CHEMISTRY METHOD 12/10/2024 1:38 PM [facility] HDL 44 >=40 mg/dL LAB CHEMISTRY METHOD 12/10/2024 1:38 PM [facility] LDL Calculated 80 0 - 100 mg/dL LAB CHEMISTRY METHOD 12/10/2024 1:38 PM [facility] VLDL Cholesterol Ander 29.8 mg/dL LAB CHEMISTRY METHOD 12/10/2024 1:38 PM [facility] Non HDL Chol. (LDL+VLDL) 110 <145 mg/dL LAB CHEMISTRY METHOD 12/10/2024 1:38 PM [facility] Chol/HDL Ratio 3.5 0.0 - 4.4 LAB CHEMISTRY METHOD 12/10/2024 1:38 PM [facility] Blood Venous blood specimen / Unknown Venipuncture / Unknown 12/10/2024 10:34 AM EDT 12/10/2024 10:34 AM EDT Ed ROSS LAB BLOOD ORDERABLES Final Res ult [facility] [address] [place] [address], [place] [phone] * C-reactive protein (12/10/2024 10:34 AM EDT) C-Reactive Protein <0.29 <=0.50 mg/dL LAB CHEMISTRY METHOD 12/10/2024 1:38 PM EDT [facility] Blood Venous blood specimen / Unknown Venipuncture / Unknown 12/10/2024 10:34 AM EDT 12/10/2024 10:34 AM EDT Petty ROSS LAB BLOOD ORDERABLES Final Resul t Performing Organization Address [facility] Co de Phone Number [facility] [address] [place] [address], [place] [phone] * (ABNORMAL) Hemoglobin A1c (12/10/2024 10:34 AM EDT) Hemoglobin A1C 7.3(H) <6.5 % LAB CHEMISTRY METHOD 12/10/2024 2:15 PM EDT [facility] Mean Bld Glu Estim. 163 mg/dL LAB CHEMISTRY METHOD 12/10/2024 2:15 PM EDT [facility] Blood Venous blood specimen / Unknown Venipuncture / Unknown 12/10/2024 10:34 AM EDT 12/10/2024 10:34 AM EDT Ed ROSS LAB BLOOD ORDERABLES Final Res ult Performing Organization Address City/[facility]/ZIP Co de Phone Number [facility] [address] [place] [address], [place] [phone] * Diabetes Foot Exam (01/10/2024) Diabetes: Annual Foot Exam abstracted Historical Provider HEALTH MAINTENANCE Final Result * Depression Screening (07/12/2023) Depression Screening abstracted Historical Provider HEALTH MAINTENANCE Final Result from [...] currently active code status orders. Care Teams Mc Kay Stitcher Relationship Specialty Start Date End Date Tammy Joshi MD [address] [place] [address] PCP - General 08/25/1998
--- OUTSIDE RECORDS SUMMARY | 2025-01-31 12:11 | XMS_ITS | Encounter Summary ---
Author Organization [facility] Address [address] [place] [address] Care Team Providers Care Switch Foreman Name Role Phone Tammy Joshi MD Primary Care Provider [phone] Reason for Visit * Reason Onset Date Comments Hypertension 01/01/2025 Encounter Details Date Type Department Care Team ([facility] Contact Info) Description 01/01/2025 Telephone Adult [facility] [address] [place] [phone] Tammy Joshi MD [address] [place] [address] Social History Tobacco Use Types Packs/Day Years [...] for your loved ones. For example, child protective investigator or elderly care for an older adult? [...] traveled recently to another state outside of [place], [place], [place], [place], [place], [place], [place]? o If yes, did you quarantine for [...] date of accident/Injury: If yes, gather 3rd alliance party insurance information Third Constitution Party Information: PCP: Tammy Joshi MD Payor: [facility] MEDICARE / Plan: [facility] MEDICARE COMPLETE / Product Type: *No Product type* / documented in this encounter Plan of Treatment Upcoming Encounters Date Type Department Care Team (Late st Contact Info) Description 04/22/2025 11:15 AM EST Office Visit [facility] Hematology Oncology [address] [place] [phone] Jasmin Green MD [address] [place] [address] documented as of this encounter Visit Diagnoses Not on filedocumented in this encounter Additional Health Concerns Assessment Noted Time PHQ-9 Depression Total Score: 0 05/21/20 25 11:17 AM EDT documented as of this encounter Care Teams Switch Foreman Relationship Specialty Start Date End Date Tammy Joshi MD [address] [place] [id number] PCP - General 08/25/1998 documented as of this encounter
== END 2025-01-31 10:03 | disposition home or self-care (01) ==
LOC: HO.BBR 10:02
PROVIDERS: Visit Provider Internal Medicine
DX: D45 Polycythemia vera (principal)
CPT/HCPCS: 85018

== ENCOUNTER 2025-02-11 12:50 | Outpatient (REF) | payer MEDICARE, SELFPAY ==
--- OUTSIDE RECORDS SUMMARY | 2025-02-11 15:12 | XMS_ITS | Clinical Summary ---
Author Organization [facility] Address [address] [place] [address] Care Team Providers Care Water Commissioner Name Role Phone Alexander Joshi MD Primary [...] age to complete this topic Care Teams Water Commissioner Relationship Specialty Start Date End Date Alexander Joshi MD PCP - General Deboning Team Leader 09/14/19
--- OUTSIDE RECORDS SUMMARY | 2025-02-11 15:12 | XMS_ITS | Clinical Summary ---
Author Organization [facility] Address [address] [place] [phone] Phone Care Team Providers Care Sales Ledger Administrator Name Role Phone Tammy Joshi MD Primary Care Provider [phone] Allergies Active Allergy Reactions Criticality Noted Date Comments Ibuprofen 06/10/2005 Tachycardia Iodinated Contrast Media Rash 06/10/2005 Medications MULTIVITAMIN ORAL QD Active CHOLECALCIFEROL , VITAMIN D3, ORAL Take by mouth daily. Active aspirin 81 mg EC tablet 1 TABLET DAILY 06/19/19 08 Active tamsulosin (FLOMAX) 0.4 mg 24 hr capsuleIndicati ons:Benign prostatic hyperplasia with lower urinary tract symptoms, symptom details unspecified Take 1 capsule (0.4 mg total) by mouth 1 (one) time each day. Capsules should be taken 30 minutes following the same meal each day. 30 each 2 12/11/19 25 025 Active amLODIPine (NORVASC) 2.5 mg tabletIndicatio ns:Hypertension , unspecified type Take 1 tablet (2.5 mg total) by mouth 1 (one) time each day. 30 each 5 01/12/20 25 026 Active losartan (COZAAR) 100 mg tabletIndicatio ns:Hypertension , unspecified type TAKE 1 TABLET(100 MG) BY MOUTH 1 TIME EACH DAY 90 tablet 1 02/02/20 25 Active losartan (COZAAR) 100 mg tabletIndicatio ns:Hypertension , unspecified type Take 1 tablet (100 mg total) by mouth 1 (one) time each day. 90 tablet 09/25/19 25 025 Discontinued Active Problems Problem Noted Date Diagnosed Date [...] mellitus) type II controlled with renal manifestation ([facility] V24, [facility] V28) 11/04/2016 Polycythemia 08/17/2013 Carotid bruit 07/19/2013 Renal cyst 11/27/2010 Overview (04/13/2024): On cat scan Complex cyst on CT 07/24. MRI recommended Diverticulosis 11/26/2010 Overview (04/13/2024): Diverticulitis 11/2010 Ear discharge 09/05/2009 Overview (04/13/2024): Left--Dr. Mcmahan Hypercholesteremia 06/05/2008 Overview (04/13/2024): 05/17--rec med, pt declined Chronic obstructive airway d isease ([facility] V24, [facility] V28) 01/14/2007 Overview (04/13/2024): by CT 12/13 Calculus of kidney 05/23/2006 Overview (04/13/2024): Bilateral on cat scan Encounters Date Type Department Care Team Description 01/29/2025 10:00 AM EDT Office Visit [facility] Hematology Oncology [address] [place] [place] [phone] Jasmin Green MD Primary polycythemia (CMS/HCC V24, CMS/HCC V28) (Primary Dx) 01/14/[address] [facility] Hematology Oncology [address] [place] [place] [phone] Jasmin Green MD 01/11/2025 1:45 PM EDT Office Visit [facility] - [place] [address] [place] [phone] Jaylene Peacock NP Hypertension, unspecified type (Primary Dx) 01/09/[address] [facility] Hematology Oncology [address] [place] [place] [phone] Jasmin Green MD 01/08/2025 11:17 PM EDT - 01/09/2025 4:[address] [facility] Emergency [address] [place] [place] [phone] Richard Chaparro MD Elevated blood pressure reading (Primary Dx); Abnormal EKG Discharge Disposition: Home or Self Care 01/03/2025 Telephone [facility] [place] [address] [place] [phone] Tammy Joshi MD 01/03/2025 Telephone [facility] [place] [address] [place] [phone] Tammy Joshi MD 01/01/2025 Telephone [facility] - [place] [address] [place] [phone] Tammy Joshi MD 01/01/[address] [facility] Hematology Oncology [address] [place] [phone] Jasmin Green MD 12/24/2024 11:30 AM EDT Office Visit 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, without long-term current use of insulin ([facility] V24, [facility] V28) 12/10/2024 Telephone Adult Medicine - [place] [address] [place] [phone] Melinda Stover RN 11/20/2024 10:40 AM EDT Office Visit Gastroenterology - [place] [address] [place] [phone] Katherine Barnes NP Left lower quadrant abdominal pain (Primary Dx); History of diverticulitis of colon from Last 3 Months Immunizations Immunization Administration Dates Next Due Influenza trivalent, 0.5mL [...] ed Within the last 3 months, soren w many times did you visit the [...] do you feel lonely or isolated from ose around you? Rarely 09/26/2024 Food Risk [...] for your loved ones. For example, director maternal child or elderly care for an older adult? [...] Date Recorded What is your living situation? Unrecognized valu e 09/26/2024 Interpersonal Safety Answer Date Record ed Physical Abuse Unrecognized value 06/12/2024 Verbal Abuse Unrecognized value 06/12/2024 Sex and Gender Information Value Date [...] Care Team (Late st Contact Info) Description 02/13/2025 1:30 PM EDT Office Visit Adult Medicine - [place] [address] [place] [phone] Jaylene Peacock NP [address] [place] [address] 04/22/2025 11:15 AM EST Office Visit 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, without long-term current use of insulin ([facility] V24, [facility] V28) ECG ANNOTATED 01/10/2025 ECG ANNOTATED 01/10/2025 [...] complication, without long-term current use of insulin ([facility] V24, [facility] V28) LIPID PANEL WITH REFLEX TO DIRECT LDL Routine 12/10/2024 10:34 AM EDT 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, without long-term current use of insulin ([facility] V24, [facility] V28) HEMOGLOBIN A1C Routine 12/10/2024 10:34 AM EDT 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, without long-term current use of insulin ([facility] V24, [facility] V28) COMPREHENSIVE METABOLIC PANEL Routine 12/10/2024 [...] LAB CHEMISTRY METHOD 01/11/2025 9:36 PM EDT [facility] Microalb, Ur 110.0(H) 0.0 - 29.0 mg/L LAB CHEMISTRY METHOD 01/11/2025 9:36 PM T [facility] Microalb/Crea t Ratio 95(H) <30 mg/g creat LAB CHEMISTRY METHOD 01/11/2025 9:36 PM T [facility] Urine Urine specimen obtained by clean catch procedure / Unknown Non-blood Collection / Unknown 01/11/2025 2:08 PM EDT 01/11/2025 2:08 PM EDT us Petty ROSS LAB URINE ORDERABLES Final Resul t [facility] [address] [place] [address], [place] [phone] * (ABNORMAL) Basic metabolic panel (01/11/2025 2:08 PM EDT) Sodium 140 133 - 145 mmol/L LAB CHEMISTRY METHOD 01/11/2025 5:54 PM EDT [facility] Potassium 4.3 3.5 - 5.5 mmol/L LAB CHEMISTRY METHOD 01/11/2025 5:54 PM [facility] Chloride 106 96 - 110 mmol/L LAB CHEMISTRY METHOD 01/11/2025 5:54 PM [facility] CO2 31 21 - 32 mmol/L LAB CHEMISTRY METHOD 01/11/2025 5:54 PM [facility] Anion Gap 3 3 - 11 LAB CHEMISTRY METHOD 01/11/2025 5:54 PM [facility] Glucose 108(H) 70 - 100 mg/dL LAB CHEMISTRY METHOD 01/11/2025 5:54 PM [facility] BUN 17 5 - 25 mg/dL LAB CHEMISTRY METHOD 01/11/2025 5:54 PM [facility] Creatinine 1.03 0.70 - 1.30 mg/dL LAB CHEMISTRY METHOD 01/11/2025 5:54 PM [facility] eGFR 71 >=60 mL/min/1. 73m2 LAB CHEMISTRY METHOD 01/11/2025 5:54 PM [facility] Comment:Calculation based on the Chronic Kidney Disease Epidemiology Collaboration (CKD-EPI) equation refit without adjustment for race. BUN/Creatinine Ratio 16.5 LAB CHEMISTRY METHOD 01/11/2025 5:54 PM [facility] Calcium 9.4 8.5 - 10.5 mg/dL LAB CHEMISTRY METHOD 01/11/2025 5:54 PM EDT [facility] Blood Venous blood specimen / Unknown Venipuncture / Unknown 01/11/2025 2:08 PM EDT 01/11/2025 2:08 PM EDT Petty ROSS LAB BLOOD ORDERABLES Final Resul t Performing Organization Address [facility] Co de Phone Number [facility] [address] [place] [address], [place] [phone] * ECG-Annotated (01/10/2025) Only the most recent of2 resultswithin the time period is included. Provider Onbase MD ECG ORDERABLES Final Result * Magnesium (01/09/2025 2:29 AM EDT) Magnesium 2.1 1.9 - 2.6 mg/dL LAB CHEMISTRY METHOD 01/09/2025 3:14 AM EDT [facility] Blood Venous blood specimen / Unknown Venipuncture / Unknown 01/09/2025 2:29 AM EDT 01/09/2025 2:38 AM EDT Alexa ROSS LAB BLOOD ORDERABLES Fin al Result Performing Organization Address City/[facility]/ZIP Co de Phone Number [facility] [address] [place] [address], [place] [phone] * Lipase (01/09/2025 2:29 AM EDT) Lipase 49 13 - 75 unit/L LAB CHEMISTRY METHOD 01/09/2025 3:14 AM EDT [facility] Blood Venous blood specimen / Unknown Venipuncture / Unknown 01/09/2025 2:29 AM EDT 01/09/2025 2:38 AM EDT Alexa ROSS LAB BLOOD ORDERABLES Fin al Result [facility] [address] [place] [address], [place] [phone] * (ABNORMAL) Comprehensive Metabolic Panel (CMP) (01/09/2025 2:29 AM EDT) Only the most recent of2 resultswithin the time period is included. Pathologist [facility] Sodium 139 133 - 145 mmol/L LAB CHEMISTRY METHOD 01/09/2025 3:22 AM [facility] Potassium 4.5 3.5 - 5.5 mmol/L LAB CHEMISTRY METHOD 01/09/2025 3:22 AM [facility] Chloride 106 96 - 110 mmol/L LAB CHEMISTRY METHOD 01/09/2025 3:22 AM [facility] CO2 29 21 - 32 mmol/L LAB CHEMISTRY METHOD 01/09/2025 3:22 AM [facility] Anion Gap 4 3 - 11 LAB CHEMISTRY METHOD 01/09/2025 3:22 AM [facility] Glucose 112(H) 70 - 100 mg/dL LAB CHEMISTRY METHOD 01/09/2025 3:22 AM [facility] BUN 14 5 - 25 mg/dL LAB CHEMISTRY METHOD 01/09/2025 3:22 AM [facility] Creatinine 0.82 0.70 - 1.30 mg/dL LAB CHEMISTRY METHOD 01/09/2025 3:22 AM [facility] eGFR 86 >=60 mL/min/1. 73m2 LAB CHEMISTRY METHOD 01/09/2025 3:22 AM [facility] Comment:Calculation based on the Chronic Kidney Disease Epidemiology Collaboration (CKD-EPI) equation refit without adjustment for race. BUN/Creatinine Ratio 17.1 LAB CHEMISTRY METHOD 01/09/2025 3:22 AM EDT [facility] Calcium 9.2 8.5 - 10.5 mg/dL LAB CHEMISTRY METHOD 01/09/2025 3:22 AM T [facility] AST (SGOT) 29 10 - 42 unit/L LAB CHEMISTRY METHOD 01/09/2025 3:22 AM [facility] ALT (SGPT) 26 10 - 60 unit/L LAB CHEMISTRY METHOD 01/09/2025 3:22 AM [facility] Alkaline Phosphatase 85 42 - 121 unit/L LAB CHEMISTRY METHOD 01/09/2025 3:22 AM [facility] Total Protein 7.1 6.0 - 8.0 g/dL LAB CHEMISTRY METHOD 01/09/2025 3:22 AM [facility] Albumin 3.7 3.2 - 5.0 g/dL LAB CHEMISTRY METHOD 01/09/2025 3:22 AM [facility] Total Bilirubin 1.2 0.0 - 1.4 mg/dL LAB CHEMISTRY METHOD 01/09/2025 3:22 AM [facility] Blood Venous blood specimen / Unknown Venipuncture / Unknown 01/09/2025 2:29 AM EDT 01/09/2025 2:38 AM EDT Alexa ROSS LAB BLOOD ORDERABLES Fin al Result [facility] [address] [place] [address], * XR Chest 1 View (01/09/2025 1:00 [...] Signed Date: 01/09/2025 10:45 ET Workstation ID: [id number] Transcribed By: Self Edit Transcribed Date: 01/09/2025 [...] Signed Date: 01/09/2025 10:45 ET Workstation ID: [id number] Transcribed By: Self Edit Transcribed Date: 01/09/2025 10:43 ET us Richard Chaparro MD IMG XR PROCEDURES Final Result * D-dimer, quantitative (01/09/2025 12:28 AM EDT) D-Dimer, Quant (D-DU) 161 <=230 ng/mL DDU LAB COAGULATION METHOD 01/09/2025 1:30 AM EDT [facility] Blood Venous blood specimen / Unknown Venipuncture / Unknown 01/09/2025 12:28 AM EDT 01/09/2025 1:15 AM EDT Narrative [facility] - 01/09/2025 1:30 AM EDT D-Dimer <230 ng/mL (D-Dimer units) is the threshold for exclusion of DVT/PE. D-Dimer may be elevated in: Critically ill, severely infected, trauma patients, DIC, acute CVA, acute MT, unstable angina, AF, old age, , and smoking. D-Dimer may be decreased with: Initiation of heparin therapy and oral anticoagulants. Richard Chaparro MD LAB BLOOD ORDERABLES Fin al Result Performing Organization Address City/[facility]/ZIP Co de Phone Number [facility] [address] [place] [address], * Lactate, with Reflex (01/08/2025 11:44 PM EDT) [facility] LACTIC ACID 1.0 0.4 - 2.0 mmol/L LAB CHEMISTRY METHOD 01/09/2025 1:43 AM EDT [facility] Blood Venous blood specimen / Unknown Venipuncture / Unknown 01/08/2025 11:44 PM EDT 01/09/2025 1:13 AM EDT Alexa ROSS LAB BLOOD ORDERABLES Fin al Result Performing Organization Address City/[facility]/ZIP Co de Phone Number [facility] [address] [place] [address], [place] [phone] * Troponin I High Sensitivity (01/08/2025 11:44 PM EDT) [facility] High Sensitivity Troponin I 19 <=79 ng/L LAB CHEMISTRY METHOD 01/09/2025 1:45 AM EDT [facility] Blood Venous blood specimen / Unknown Venipuncture / Unknown 01/08/2025 11:44 PM EDT 01/09/2025 1:14 AM EDT Narrative [facility] - 01/09/2025 1:45 AM EDT High levels of biotin in samples may falsely decrease hsTroponin values. Use caution when interpreting hsTroponin results in patients taking biotin who exhibit renal impairment (eGFR <60) or in patients taking more than 20 mg/day of biotin. us Alexa ROSS LAB BLOOD ORDERABLES Fin al Result [facility] [address] [place] [address], * (ABNORMAL) CBC auto differential (01/08/2025 11:44 PM EDT) Only the most recent of2 resultswithin the time period is included. [facility] WBC 9.4 4.8 - 10.8 K/mcL LAB HEMETOLOGY METHOD 01/09/2025 2:23 AM T [facility] RBC 8.70(H) 4.50 - 5.50 M/mcL LAB HEMETOLOGY METHOD 01/09/2025 2:23 AM EDT [facility] Hemoglobin 17.4 13.5 - 17.5 g/dL LAB HEMETOLOGY METHOD 01/09/2025 2:23 AM [facility] Hematocrit 66.2(HH) 42.0 - 54.0 % LAB HEMETOLOGY METHOD 01/09/2025 2:23 AM [facility] MCV 75.4(L) 79.0 - 98.0 FL LAB HEMETOLOGY METHOD 01/09/2025 2:23 AM [facility] MCH 19.8(L) 27.0 - 32.0 pcg LAB HEMETOLOGY METHOD 01/09/2025 2:23 AM [facility] MCHC 26.3(L) 32.0 - 37.0 g/dL LAB HEMETOLOGY METHOD 01/09/2025 2:23 AM [facility] RDW 26.9(H) 11.0 - 15.0 % LAB HEMETOLOGY METHOD 01/09/2025 2:23 AM [facility] Platelets 199 130 - 400 K/mcL LAB HEMETOLOGY METHOD 01/09/2025 2:23 AM [facility] MPV LAB HEMETOLOGY METHOD 01/09/2025 2:23 AM [facility] Comment:Not Measured NRBC 0.0 <1.0 % LAB HEMETOLOGY METHOD 01/09/2025 2:23 AM [facility] NRBC Absolute 0.00 <0.10 K/mcL LAB HEMETOLOGY METHOD 01/09/2025 2:23 AM [facility] Neutrophils Relative 53.1 % LAB HEMETOLOGY METHOD 01/09/2025 2:23 AM [facility] Lymphocytes Relative 21.1 % LAB HEMETOLOGY METHOD 01/09/2025 2:23 AM [facility] Monocytes Relative 10.0 % LAB HEMETOLOGY METHOD 01/09/2025 2:23 AM [facility] Eosinophils Relative 14.2 % LAB HEMETOLOGY METHOD 01/09/2025 2:23 AM [facility] Basophils Relative 1.1 % LAB HEMETOLOGY METHOD 01/09/2025 2:23 AM [facility] Immature Granulocytes Relative 0.5 % LAB HEMETOLOGY METHOD 01/09/2025 2:23 AM EDT [facility] Neutrophils Absolute 5.00 1.50 - 7.00 K/mcL LAB HEMETOLOGY METHOD 01/09/2025 2:23 AM EDT [facility] Lymphocytes Absolute 1.99 1.00 - 5.00 K/mcL LAB HEMETOLOGY METHOD 01/09/2025 2:23 AM EDT [facility] Monocytes Absolute 0.94 0.20 - 1.00 K/mcL LAB HEMETOLOGY METHOD 01/09/2025 2:23 AM EDT [facility] Eosinophils Absolute 1.34(H) 0.00 - 0.50 K/mcL LAB HEMETOLOGY METHOD 01/09/2025 2:23 AM EDT [facility] Basophils Absolute 0.10 0.00 - 0.20 K/mcL LAB HEMETOLOGY METHOD 01/09/2025 2:23 AM EDT [facility] Immature Granulocytes Absolute 0.05(H) 0.00 - 0.03 K/mcL LAB HEMETOLOGY METHOD 01/09/2025 2:23 AM EDT [facility] Blood Venous blood specimen / Unknown Venipuncture / Unknown 01/08/2025 11:44 PM EDT 01/09/2025 1:14 AM EDT Alexa ROSS LAB BLOOD ORDERABLES Fin al Result [facility] [address] [place] [address], * (ABNORMAL) B-Type Natriuretic Peptide (BNP) (01/08/2025 11:44 PM EDT) BNP 204(H) <=100 pcg/mL LAB CHEMISTRY METHOD 01/09/2025 1:55 AM EDT [facility] Blood Venous blood specimen / Unknown Venipuncture / Unknown 01/08/2025 11:44 PM EDT 01/09/2025 1:14 AM EDT Alexa ROSS LAB BLOOD ORDERABLES Fin al Result Performing Organization Address [facility] Co de Phone Number [facility] [address] [place] [address], [place] [phone] * 12-Lead ECG (01/08/2025 11:42 PM EDT) Ventricular Rate ECG 63 BPM GEMUSE Atrial Rate 63 BPM GEMUSE P-R Interval 188 ms GEMUSE QRS Duration 102 ms GEMUSE Q-T Interval 406 ms GEMUSE QTc 415 ms GEMUSE P Wave [place] 68 degrees GEMUSE R [place] -66 degrees GEMUSE T [place] -133 degrees GEMUSE ECG Interpretation Sinus rhythm [...] Alexa ROSS ECG ORDERABLES Final Re sult Performing Organization Address City/[facility] Co de Phone Number GEMUSE * (ABNORMAL) PSA total, free and complexed (12/10/2024 10:34 AM EDT) PSA 0.90 0.00 - 4.00 ng/mL LAB CHEMISTRY METHOD 12/10/2024 2:10 PM EDT [facility] PSA, Complexed 0.67 0.00 - 3.00 ng/mL LAB CHEMISTRY METHOD 12/10/2024 2:10 PM EDT [facility] PSA, Free 0.2 ng/mL LAB CHEMISTRY METHOD 12/10/2024 2:10 PM EDT [facility] PSA, Free Pct 22.2(L) >25.0 % LAB CHEMISTRY METHOD 12/10/2024 2:10 PM EDT [facility] Blood Venous blood specimen / Unknown Venipuncture / Unknown 12/10/2024 10:34 AM EDT 12/10/2024 10:34 AM EDT [facility] - 12/10/2024 2:10 PM EDT Free PSA is a calculated value. The diagnostic usefulness of % free PSA has not been established in patients with Total PSA below 2.6 or above 10 ng/mL. This test was performed using the Centaur Chemiluminescent method. PSA values obtained with other methods cannot be used interchangeably. us Ed ROSS LAB BLOOD ORDERABLES Final Res ult [facility] [address] [place] [address], [place] [phone] * Lipid panel with reflex to direct LDL (12/10/2024 10:34 AM EDT) Cholesterol 154 0 - 200 mg/dL LAB CHEMISTRY METHOD 12/10/2024 1:38 PM EDT [facility] Triglycerides 149 0 - 150 mg/dL LAB CHEMISTRY METHOD 12/10/2024 1:38 PM EDT [facility] HDL 44 >=40 mg/dL LAB CHEMISTRY METHOD 12/10/2024 1:38 PM EDT [facility] LDL Calculated 80 0 - 100 mg/dL LAB CHEMISTRY METHOD 12/10/2024 1:38 PM EDT [facility] VLDL Cholesterol Ander 29.8 mg/dL LAB CHEMISTRY METHOD 12/10/2024 1:38 PM EDT [facility] Non HDL Chol. (LDL+VLDL) 110 <145 mg/dL LAB CHEMISTRY METHOD 12/10/2024 1:38 PM EDT [facility] Chol/HDL Ratio 3.5 0.0 - 4.4 LAB CHEMISTRY METHOD 12/10/2024 1:38 PM EDT [facility] Blood Venous blood specimen / Unknown Venipuncture / Unknown 12/10/2024 10:34 AM EDT 12/10/2024 10:34 AM EDT Ed ROSS LAB BLOOD ORDERABLES Final Res ult Performing Organization Address [facility]/ZIP Co de Phone Number [facility] [address] [place] [address], [place] [phone] * C-reactive protein (12/10/2024 10:34 AM EDT) C-Reactive Protein <0.29 <=0.50 mg/dL LAB CHEMISTRY METHOD 12/10/2024 1:38 PM EDT [facility] Blood Venous blood specimen / Unknown Venipuncture / Unknown 12/10/2024 10:34 AM EDT 12/10/2024 10:34 AM EDT Petty ROSS LAB BLOOD ORDERABLES Final Resul t Performing Organization Address [facility]/ZIP Co de Phone Number [facility] [address] [place] [address], * (ABNORMAL) Hemoglobin A1c (12/10/2024 10:34 AM EDT) Hemoglobin A1C 7.3(H) <6.5 % LAB CHEMISTRY METHOD 12/10/2024 2:15 PM EDT [facility] Mean Bld Glu Estim. 163 mg/dL LAB CHEMISTRY METHOD 12/10/2024 2:15 PM EDT [facility] Blood Venous blood specimen / Unknown Venipuncture / Unknown 12/10/2024 10:34 AM EDT 12/10/2024 10:34 AM EDT us Ed ROSS LAB BLOOD ORDERABLES Final Res ult [facility] ([facility] [address] [place] [address], [place] [phone] * Diabetes Foot Exam (01/10/2024) Diabetes: Annual Foot Exam abstracted us Historical Provider MD HEALTH MAINTENANCE Final Result * Depression Screening (07/12/2023) Depression Screening abstracted Historical Provider MD HEALTH MAINTENANCE Final Result from Last 3 Months or Most Recently Relevant to Health Maintenance Insurance [place] [id number] Advance Directives * No CPR/Do Not Intubate [...] currently active code status orders. Care Teams Sales Ledger Administrator Relationship Specialty Start Date End Date Tammy Joshi MD [address] [place] [id number] PCP - General 08/25/1998
== END 2025-02-11 12:51 | disposition home or self-care (01) ==
LOC: HO.BBR 12:50
PROVIDERS: Visit Provider Internal Medicine
DX: D45 Polycythemia vera (principal)
CPT/HCPCS: 85014; 85018; 99195